=== PATIENT | male | born 1930 | race Caucasian/White ===

== ENCOUNTER → 2016-06-04 | Outpatient (CLI) | payer MEDICARE | LOC: RAD 10:17 | PROVIDERS: ATTEND Urology | DX: C61 Malignant neoplasm of prostate (principal) | CPT/HCPCS: 78306; A9503; Q9969 ==

== ENCOUNTER → 2017-04-02 | Outpatient (CLI) | payer MEDICARE ==
--- NOTE | 2017-04-02 15:26 | RADIOLOGY REPORT (SQ) ---
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 NUMBER OF VIEWS: Three views. TECHNIQUE: AP, lateral, and oblique radiographic images acquired of the left ankle. LIMITATIONS: Faintly radiopaque dressing over the ankle FINDINGS: MINERALIZATION: Osteoporotic BONES: No acute fracture or dislocation. No aggressive bony demineralization or periosteal new bone over the medial malleolus worrisome for osteomyelitis at this time. JOINTS: No effusions. SOFT TISSUES: Mild diffuse medial soft tissue swelling. No foreign body. OTHER: No other significant finding. IMPRESSION: No bony demineralization or periostitis medial malleolus worrisome for osteomyelitis at this time TECHNICAL DOCUMENTATION: JOB ID: [id number] [email or web address]- All Rights Reserved
== END ==
LOC: OD 14:12
PROVIDERS: ATTEND Preventive Medicine Undersea and Hyperbaric Medicine
DX: L97.322 Non-pressure chronic ulcer of left ankle with fat layer exposed (principal)

== ENCOUNTER 2017-05-06 13:57 | Emergency (ER) | payer MEDICARE ==
[2017-05-06] MEDS ORDERED: NORMAL SALINE 1000 ML 1,000 ML IV ONE (14:23)
--- NOTE | 2017-05-06 14:25 | ER Document Report ---
ED Medical Screen (RME) - General Chief Complaint: Syncope Stated Complaint: POSSIBLE SYNCOPE Time Seen by Provider: 05/06/17 14:22 Notes: pt with hx prostate cancer on chemo had syncopal episode at home today and fell out of chair and landed on floor TRAVEL OUTSIDE OF THE [place] IN LAST 30 DAYS: No - Related Data Allergies/Adverse Reactions: adhesive [Adhesive] Allergy (Verified 01/21/12 01:07) alfuzosin HCl [From Uroxatral] Allergy (Verified 01/21/12 01:07) atorvastatin calcium [From Lipitor] Allergy (Verified 01/21/12 01:07) bacitracin [From Neosporin] Allergy (Verified 01/21/12 01:07) bacitracin zinc [From Neosporin] Allergy (Verified 01/21/12 01:07) gramicidin D [From Neosporin] Allergy (Verified 01/21/12 01:07) neomycin [Neomycin] Allergy (Verified 01/21/12 01:07) neomycin sulfate [From Neosporin] Allergy (Verified 01/21/12 01:07) nystatin [Nystatin] Allergy (Verified 01/21/12 01:07) polymyxin B [From Neosporin] Allergy (Verified 01/21/12 01:07) polymyxin B sulfate [From Neosporin] Allergy (Verified 01/21/12 01:07) simvastatin [From Zocor] Allergy (Verified 01/21/12 01:07) alfluzosin Allergy (Uncoded 01/21/12 01:07) polymycin Allergy (Uncoded 01/21/12 01:07) rubber gloves Allergy (Uncoded 01/21/12 01:07) Past Medical History - Past Medical History Cardiac Medical History: Reports: Hx Coronary Artery Disease, Hx Heart Attack Denies: Hx Hypertension Pulmonary Medical History: Denies: Hx Asthma, Hx Bronchitis, Hx COPD, Hx Pneumonia, Hx Tuberculosis Neurological Medical History: Reports: 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 Denies: Hx Pacemaker - Immunizations Hx Diphtheria, Pertussis, Tetanus Vaccination: Yes - 11/08/11 Physical Exam - Vital signs Vitals: Temp Pulse Resp BP Pulse Ox 97.9 F 74 18 127/65 H 98 05/06/17 14:15 05/06/17 14:15 05/06/17 14:15 05/06/17 14:15 05/06/17 14:15 Course - Vital Signs Vital signs: Temp Pulse Resp BP Pulse Ox 97.9 F 74 18 127/65 H 98 05/06/17 14:15 05/06/17 14:15 05/06/17 14:15 05/06/17 14:15 05/06/17 14:15
[2017-05-06 14:38] LABS: ABSOLUTE EOSINOPHILS # (AUTO) 0.1 10^3/uL (0.0-0.6); ABSOLUTE LYMPHOCYTES (AUTO) 1.4 10^3/uL (0.5-4.7); ABSOLUTE MONOCYTES (AUTO) 1.3 10^3/uL (0.1-1.4); ABSOLUTE NEUT (AUTO) 9.5 10^3/uL (1.7-8.2); BASOPHILS % (AUTO) 0.3 % (0-2); EOSINOPHILS % (AUTO) 0.5 % (0-6); HEMATOCRIT 37.6 % (37.9-51.0); HEMOGLOBIN 12.5 g/dL (13.5-17.0); LYMPHOCYTES % (AUTO) 11.6 % (13-45); MEAN CORPUSCULAR HEMOGLOBIN 30.6 pg (27.0-33.4); MEAN CORPUSCULAR HGB CONC 33.3 g/dL (32.0-36.0); MEAN CORPUSCULAR VOLUME 92 fl (80-97); MONOCYTES % (AUTO) 10.3 % (3-13); PLATELET COUNT 240 10^3/uL (150-450); RED BLOOD COUNT 4.09 10^6/uL (4.35-5.55); RED CELL DISTRIBUTION WIDTH 14.5 % (11.5-14.0); SEGMENTED NEUTROPHILS % (AUTO) 77.3 % (42-78); TOTAL CELLS COUNTED % (AUTO) 100 %; WHITE BLOOD COUNT 12.3 10^3/uL (4.0-10.5)
[2017-05-06 15:00] LABS: ALANINE AMINOTRANSFERASE 28 U/L (21-72); ALBUMIN 3.6 g/dL (3.5-5.0); ALKALINE PHOSPHATASE 59 U/L (38-126); ANION GAP 7 (5-19); ASPARTATE AMINO TRANSFERASE 28 U/L (17-59); BILIRUBIN,DIRECT 0.4 mg/dL (0.0-0.4); BILIRUBIN,TOTAL 0.7 mg/dL (0.2-1.3); BLOOD UREA NITROGEN 20 mg/dL (7-20); CALCIUM 8.9 mg/dL (8.4-10.2); CARBON DIOXIDE 27 mmol/L (22-30); CHLORIDE 102 mmol/L (98-107); GLUCOSE 105 mg/dL (75-110); POTASSIUM 3.9 mmol/L (3.6-5.0); SODIUM 136.1 mmol/L (137-145); TOTAL PROTEIN 6.5 g/dL (6.3-8.2)
[2017-05-06 15:19] LABS: APPEARANCE,URINE SLIGHTLY-CLOUDY; BILIRUBIN,URINE NEGATIVE (NEGATIVE); COLOR,URINE AMBER; GLUCOSE, URINE NEGATIVE (NEGATIVE); KETONES,URINE NEGATIVE (NEGATIVE); LEUKOCYTE ESTERASE,URINE NEGATIVE (NEGATIVE); NITRITE,URINE NEGATIVE (NEGATIVE); PROTEIN,URINE NEGATIVE (NEGATIVE); URINE SPECIFIC GRAVITY 1.017
--- NOTE | 2017-05-06 15:50 | RADIOLOGY REPORT (SQ) ---
EXAM DESCRIPTION: WRIST RIGHT 3 VIEWS COMPLETED DATE/TIME: 05/06/2017 3:38 pm REASON FOR STUDY: pain/fall COMPARISON: None. NUMBER OF VIEWS: Three views. TECHNIQUE: AP, lateral, and oblique radiographic images acquired of the right wrist. LIMITATIONS: None. FINDINGS: MINERALIZATION: Normal. BONES: No acute fracture or dislocation. No worrisome bone lesions. Normal alignment. SOFT TISSUES: No soft tissue swelling. No foreign body. OTHER: No other significant finding. IMPRESSION: NEGATIVE STUDY OF THE RIGHT WRIST. NO RADIOGRAPHIC EVIDENCE OF ACUTE INJURY. TECHNICAL DOCUMENTATION: JOB ID: [id number] [employer]- All Rights Reserved Reading location - IP/workstation name: [email or web address]
--- NOTE | 2017-05-06 15:51 | RADIOLOGY REPORT (SQ) ---
EXAM DESCRIPTION: SHOULDER LEFT 2 OR MORE VIEWS COMPLETED DATE/TIME: 05/06/2017 3:38 pm REASON FOR STUDY: pain/fall COMPARISON: Plain films of the chest dated 12/13/2014. NUMBER OF VIEWS: Three views. TECHNIQUE: Internal rotation, external rotation, and Y view images acquired of the left shoulder. LIMITATIONS: None. FINDINGS: MINERALIZATION: Normal. BONES: Multiple osseous sclerotic lesions involving the ribs, clavicle, scapula and the humerus like ly consistent with the patient's known history of osseous metastatic disease. No acute fracture or d islocation. JOINTS: No dislocation. VISUALIZED LUNGS AND RIBS: No pneumothorax. No rib fracture. SOFT TISSUES: No radiopaque foreign body. OTHER: No other significant finding. IMPRESSION: 1 No acute osseous findings. 2 Multiple osseous sclerotic lesions within the ribs, scapula, clavicle and humerus likely consistent with the patient's known history of metastatic disease. TECHNICAL DOCUMENTATION: JOB ID: [id number] [employer] All Rights Reserved Reading location - IP/workstation name: [email or web address]
--- NOTE | 2017-05-06 17:10 | ER Document Report ---
ED Syncope and Near Syncope - General Mode of Arrival: Medic Information source: Patient, Relative TRAVEL OUTSIDE OF THE [place]. IN LAST 30 DAYS: No <KALEIGH GARNETT - Last Filed: 05/06/17 21:11> <DANISH GONSALEZ - Last Filed: 05/06/17 21:26> - General Chief Complaint: Syncope Stated Complaint: POSSIBLE SYNCOPE Time Seen by Provider: 05/06/17 14:22 Notes: Patient is an 86-year-old male with a history of metastatic prostate cancer presents to the emergency department due to a syncopal episode. Patient states that he sat in his chair to put on his shoes when he began to "lose control of his body". Patient states decided to stand up then proceeded to have a syncopal episode. states that she heard the patient fall and found him laying on their pet gate. states when the patient woke up he was diaphoretic, alert and oriented but did not remember passing out. Patient denies any cough, nausea or chest pain. Patient is complaining of wrist and shoulder pain. Patient is currently on chemo and is taking to Zytiga 1000 mg and Prednisone. states the patient was going to wound care today to have a boot removed from his left foot due to an ulcer. (KALEIGH GARNETT) - Related Data Allergies/Adverse Reactions: adhesive [Adhesive] Allergy (Verified 01/21/12 01:07) alfuzosin HCl [From Uroxatral] Allergy (Verified 01/21/12 01:07) atorvastatin calcium [From Lipitor] Allergy (Verified 01/21/12 01:07) bacitracin [From Neosporin] Allergy (Verified 01/21/12 01:07) bacitracin zinc [From Neosporin] Allergy (Verified 01/21/12 01:07) gramicidin D [From Neosporin] Allergy (Verified 01/21/12 01:07) neomycin [Neomycin] Allergy (Verified 01/21/12 01:07) neomycin sulfate [From Neosporin] Allergy (Verified 01/21/12 01:07) nystatin [Nystatin] Allergy (Verified 01/21/12 01:07) polymyxin B [From Neosporin] Allergy (Verified 01/21/12 01:07) polymyxin B sulfate [From Neosporin] Allergy (Verified 01/21/12 01:07) simvastatin [From Zocor] Allergy (Verified 01/21/12 01:07) alfluzosin Allergy (Uncoded 01/21/12 01:07) polymycin Allergy (Uncoded 01/21/12 01:07) rubber gloves Allergy (Uncoded 01/21/12 01:07) Past Medical History - General Information source: Patient - Social History Smoking Status: Unknown if Ever Smoked Family History: Reviewed & Not Pertinent - Past Medical History Cardiac Medical History: Reports: Hx Coronary Artery Disease, Hx Heart Attack Neurological Medical History: Reports: 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 Endocrine Medical History: Reports: Hx Hypothyroidism Malignancy Medical History: Reports Hx Prostate Cancer - mets to the bones, 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 Past Surgical History: Reports: Hx Appendectomy, Hx Orthopedic Surgery - Ulna nerve reroute R arm - Immunizations Hx Diphtheria, Pertussis, Tetanus Vaccination: Yes - 11/08/11 Hx Pneumococcal Vaccination: 11/07/11 <KALEIGH GARNETT - Last Filed: 05/06/17 21:11> Review of Systems - Review of Systems Constitutional: No symptoms reported EENT: No symptoms reported Cardiovascular: No symptoms reported Respiratory: No symptoms reported Gastrointestinal: No symptoms reported Genitourinary: No symptoms reported Male Genitourinary: No symptoms reported Musculoskeletal: See HPI Skin: No symptoms reported Hematologic/Lymphatic: No symptoms reported Neurological/Psychological: See HPI, Lost consciousness <KALEIGH GARNETT - Last Filed: 05/06/17 21:11> Physical Exam <AKLEIGH GARNETT - Last Filed: 05/06/17 21:11> <DANISH GONSALEZ - Last Filed: 05/06/17 21:26> - Vital signs Vitals: Temp Pulse Resp BP Pulse Ox 97.9 F 74 18 127/65 H 98 05/06/17 14:15 05/06/17 14:15 05/06/17 14:15 05/06/17 14:15 05/06/17 14:15 - Notes Notes: GENERAL: Alert, interacts well. No acute distress. HEAD: Normocephalic, atraumatic. EYES: Pupils equal, round, and reactive to light. Extraocular movements intact. ENT: Oral mucosa moist, tongue midline. NECK: Full range of motion. Supple. Trachea midline. LUNGS: Clear to auscultation bilaterally, no wheezes, rales, or rhonchi. No respiratory distress. HEART: Regular rate and rhythm. No murmurs, gallops, or rubs. ABDOMEN: Soft, non-tender. Non-distended. Bowel sounds present in all 4 quadrants. EXTREMITIES: Moves all 4 extremities spontaneously. Left foot wrapped from ulcer. NEUROLOGICAL: Alert and oriented x3. Normal speech. PSYCH: Normal affect, normal mood. SKIN: Warm, dry, normal turgor. No rashes or lesions noted. BACK: tender to palpation over L3 and L4, worse on the right. (KALEIGH GARNETT) Course - Laboratory Result Diagrams: 05/06/17 13:15 05/06/17 13:15 <KALEIGH GARNETT - Last Filed: 05/06/17 21:11> - Laboratory Result Diagrams: 05/06/17 13:15 05/06/17 13:15 - Diagnostic Test Radiology reviewed: Reports reviewed - EKG Interpretation by Me EKG shows normal: Sinus rhythm <DANISH GONSALEZ - Last Filed: 05/06/17 21:26> - Re-evaluation Re-evalutation: Patient is an 86-year-old male who comes in after an episode of syncope at home. He is apparently putting his shoes on at the time. Patient denies chest pain, trouble breathing, or nausea. states that the patient is on chemotherapy and they have been told that it could cause syncope. The patient is feeling well now after fluids. Offered admission, but the patient would prefer to go home where he would be more comfortable given his metastatic prostate cancer with bone metastasis. is comfortable with this plan. They will return immediately if he has any further concerns or symptoms. Denies any pain anywhere right now. Feels well and would like to leave. (DANISH GONSALEZ) - Vital Signs Vital signs: Temp Pulse Resp BP Pulse Ox 98.5 F 80 20 125/87 H 100 05/06/17 17:17 05/06/17 17:17 05/06/17 17:17 05/06/17 17:17 05/06/17 17:17 - Laboratory Laboratory results interpreted by me: 05/06/17 05/06/17 05/06/17 13:15 13:15 14:54 WBC 12.3 H RBC 4.09 L Hgb 12.5 L Hct 37.6 L RDW 14.5 H Lymphocytes % 11.6 L Absolute Neutrophils 9.5 H Sodium 136.1 L Urine Urobilinogen 2.0 H Urine Ascorbic Acid 40 H Discharge <KALEIGH GARNETT - Last Filed: 05/06/17 21:11> <DANISH GONSALEZ - Last Filed: 05/06/17 21:26> - Discharge Clinical Impression: Syncope Qualifiers: Syncope type: unspecified Qualified Code(s): R55 - Syncope and collapse Condition: Stable Disposition: HOME, SELF-CARE Instructions: Syncopal Episode ([facility]) Additional Instructions: Please return immediately if you have any further concerns. Referrals: JENNY VILLAGOMEZ MD [Primary Care Provider] - Follow up in 3-5 days Scribe Attestation: 05/06/17 21:25 I personally performed the services described in the documentation, reviewed and edited the documentation which was dictated to the scribe in my presence, and it accurately records my words and actions. (DANISH GONSALEZ) Scribe Documentation - Scribe Written by Lalo:: Lalo Romano, 05/06/2017 17:33 acting as scribe for :: Abril <KALEIGH GARNETT - Last Filed: 05/06/17 21:11>
[2017-05-06 17:19] VITALS: BP 125/87
--- NOTE | 2017-05-06 19:03 | EKG REPORT ---
SEVERITY:- ABNORMAL ECG - SINUS RHYTHM RBBB AND LAFB : Confirmed by: Bahman Smith MD 06-May-2017 19:01:31
== END 2017-05-06 17:59 | disposition home or self-care (01) ==
LOC: ER 13:57
DX: R55 Syncope and collapse (principal); M25.539 Pain in unspecified wrist; M25.519 Pain in unspecified shoulder; W19.XXXA Unspecified fall, initial encounter; Y93.89 Activity, other specified; C61 Malignant neoplasm of prostate; C79.51 Secondary malignant neoplasm of bone; Z79.899 Other long term (current) drug therapy; Z79.52 Long term (current) use of systemic steroids; L97.529 Non-pressure chronic ulcer of other part of left foot with unspecified severity; I25.10 Atherosclerotic heart disease of native coronary artery without angina pectoris; I25.2 Old myocardial infarction; Z91.048 Other nonmedicinal substance allergy status; Z88.8 Allergy status to other drugs, medicaments and biological substances; Z88.3 Allergy status to other anti-infective agents; Z88.1 Allergy status to other antibiotic agents
CPT/HCPCS: 93005; 99284; 96360; 36415; 83735; 85025; 80053; 81001; 84484; 73030; 73110; 93010; J7030

== ENCOUNTER 2017-05-27 15:23 | Emergency (ER) | payer MEDICARE ==
[2017-05-27 15:40] LABS: ABSOLUTE LYMPHOCYTES (AUTO) 1.3 10^3/uL (0.5-4.7); ABSOLUTE MONOCYTES (AUTO) 0.8 10^3/uL (0.1-1.4); BASOPHILS % (AUTO) 0.2 % (0-2); EOSINOPHILS % (AUTO) 0.2 % (0-6); HEMATOCRIT 37.4 % (37.9-51.0); HEMOGLOBIN 12.8 g/dL (13.5-17.0); LYMPHOCYTES % (AUTO) 14.3 % (13-45); MEAN CORPUSCULAR HEMOGLOBIN 31.1 pg (27.0-33.4); MEAN CORPUSCULAR HGB CONC 34.2 g/dL (32.0-36.0); MEAN CORPUSCULAR VOLUME 91 fl (80-97); PLATELET COUNT 234 10^3/uL (150-450); RED BLOOD COUNT 4.11 10^6/uL (4.35-5.55); RED CELL DISTRIBUTION WIDTH 14.7 % (11.5-14.0); SEGMENTED NEUTROPHILS % (AUTO) 76.3 % (42-78); TOTAL CELLS COUNTED % (AUTO) 100 %; WHITE BLOOD COUNT 9.2 10^3/uL (4.0-10.5)
[2017-05-27 15:55] LABS: ALANINE AMINOTRANSFERASE 24 U/L (21-72); ALBUMIN 3.9 g/dL (3.5-5.0); ALKALINE PHOSPHATASE 74 U/L (38-126); ANION GAP 14 (5-19); ASPARTATE AMINO TRANSFERASE 25 U/L (17-59); BILIRUBIN,DIRECT 0.3 mg/dL (0.0-0.4); BILIRUBIN,TOTAL 0.8 mg/dL (0.2-1.3); BLOOD UREA NITROGEN 21 mg/dL (7-20); CALCIUM 9.6 mg/dL (8.4-10.2); CARBON DIOXIDE 19 mmol/L (22-30); CHLORIDE 100 mmol/L (98-107); CREATINE KINASE 66 U/L (55-170); GLUCOSE 108 mg/dL (75-110); POTASSIUM 4.4 mmol/L (3.6-5.0); SODIUM 132.5 mmol/L (137-145); TOTAL PROTEIN 6.8 g/dL (6.3-8.2)
[2017-05-27 16:06] LABS: CREATINE KINASE MB 1.99 ng/mL (<4.55); TROPONIN I 0.013 ng/mL
[2017-05-27] MEDS ORDERED: NORMAL SALINE 500 ML IV ONE (16:14)
--- NOTE | 2017-05-27 16:35 | RADIOLOGY REPORT (SQ) ---
EXAM DESCRIPTION: CHEST SINGLE VIEW COMPLETED DATE/TIME: 05/27/2017 4:07 pm REASON FOR STUDY: near syncope COMPARISON: 12/13/2014 EXAM PARAMETERS: NUMBER OF VIEWS: One view. TECHNIQUE: Single frontal radiographic view of the chest acquired. RADIATION DOSE: NA LIMITATIONS: None. FINDINGS: LUNGS AND PLEURA: Stable pleural based plaques or calcified nodules in the lungs since th e prior examination. No acute pulmonary consolidation. No pneumothorax or pleural effusion. MEDIASTINUM AND HILAR STRUCTURES: No masses. Contour normal. HEART AND VASCULAR STRUCTURES: Stable and appearance. BONES: No acute findings. The osseous lesions are stable in appearance with small calcified lesions in the clavicles, bony glenoids and the humeri. HARDWARE: None in the chest. OTHER: No other significant finding. IMPRESSION: 1 Stable appearance to the chest since the prior study dated 12/13/2014. There either s table calcified nodules in the lungs versus pleural based plaques. Correlation with any prior CT uche st examination suggested. 2 The osseous lesions are stable in appearance. 3 No acute pulmonary consolidation. TECHNICAL DOCUMENTATION: JOB ID: [id number] [employer]- All Rights Reserved Reading location - IP/workstation name: [email or web address]
[2017-05-27 17:50] LABS: APPEARANCE,URINE CLEAR; BILIRUBIN,URINE NEGATIVE (NEGATIVE); COLOR,URINE YELLOW; GLUCOSE, URINE NEGATIVE (NEGATIVE); KETONES,URINE TRACE mg/dL (NEGATIVE); LEUKOCYTE ESTERASE,URINE NEGATIVE (NEGATIVE); NITRITE,URINE NEGATIVE (NEGATIVE); PROTEIN,URINE NEGATIVE (NEGATIVE); URINE SPECIFIC GRAVITY 1.013; UROBILINOGEN,URINE NEGATIVE mg/dL (<2.0)
--- NOTE | 2017-05-27 18:50 | ER Document Report ---
ED General - General Chief Complaint: General Weakness Stated Complaint: WEAKNESS Time Seen by Provider: 05/27/17 15:39 Mode of Arrival: Medic Information source: Patient Notes: This is an 87-year-old man with a 3 of metastatic prostate cancer (on Zytiga and prednisone (who presents to the emergency room with generalized weakness. Patient states that he was putting air in attire for a wheelbarrow and he thinks he over exerted himself. He has been having significant weakness from being on the anticancer medicine. He denies any chest pain, shortness of breath , abdominal pain. He denies any fever or chills. TRAVEL OUTSIDE OF THE [place] IN LAST 30 DAYS: No - HPI Onset: Last week Onset/Duration: Gradual Quality of pain: No pain Severity: None Pain Level: Denies Associated symptoms: denies: Chest pain, Fever, Shortness of breath Exacerbated by: Denies Relieved by: Denies Similar symptoms previously: Yes Recently seen / treated by doctor: Yes - Related Data Allergies/Adverse Reactions: adhesive [Adhesive] Allergy (Verified 01/21/12 01:07) alfuzosin HCl [From Uroxatral] Allergy (Verified 01/21/12 01:07) atorvastatin calcium [From Lipitor] Allergy (Verified 01/21/12 01:07) bacitracin [From Neosporin] Allergy (Verified 01/21/12 01:07) bacitracin zinc [From Neosporin] Allergy (Verified 01/21/12 01:07) gramicidin D [From Neosporin] Allergy (Verified 01/21/12 01:07) neomycin [Neomycin] Allergy (Verified 01/21/12 01:07) neomycin sulfate [From Neosporin] Allergy (Verified 01/21/12 01:07) nystatin [Nystatin] Allergy (Verified 01/21/12 01:07) polymyxin B [From Neosporin] Allergy (Verified 01/21/12 01:07) polymyxin B sulfate [From Neosporin] Allergy (Verified 01/21/12 01:07) simvastatin [From Zocor] Allergy (Verified 01/21/12 01:07) alfluzosin Allergy (Uncoded 01/21/12 01:07) polymycin Allergy (Uncoded 01/21/12 01:07) rubber gloves Allergy (Uncoded 01/21/12 01:07) Past Medical History - General Information source: Patient - Social History Smoking Status: Former Smoker Cigarette use (# per day): No Chew tobacco use (# tins/day): No Frequency of alcohol use: None Drug Abuse: None Lives with: Spouse/Significant other Family History: Reviewed & Not Pertinent Patient has suicidal ideation: No Patient has homicidal ideation: No - Past Medical History Cardiac Medical History: Reports: Hx Coronary Artery Disease, Hx Heart Attack - NSTEMI Denies: Hx Hypertension Pulmonary Medical History: Denies: Hx Asthma, Hx Bronchitis, Hx COPD, Hx Pneumonia, Hx Tuberculosis Neurological Medical History: 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 Denies: Hx Pacemaker - Immunizations Hx Diphtheria, Pertussis, Tetanus Vaccination: Yes - 11/08/11 Hx Pneumococcal Vaccination: 11/07/11 Review of Systems - Review of Systems Constitutional: denies: Chills, Fever EENT: No symptoms reported Cardiovascular: No symptoms reported Respiratory: No symptoms reported Gastrointestinal: No symptoms reported Genitourinary: No symptoms reported Male Genitourinary: No symptoms reported Musculoskeletal: No symptoms reported Skin: No symptoms reported Hematologic/Lymphatic: No symptoms reported Neurological/Psychological: Weakness Physical Exam - Vital signs Vitals: Temp Pulse Resp BP Pulse Ox 97.9 F 82 19 124/67 99 05/27/17 15:36 05/27/17 15:36 05/27/17 15:36 05/27/17 15:36 05/27/17 15:36 Notes: Physical exam: GENERAL: The 87-year-old man, alert and oriented 3, no acute distress, appears weak HEAD: Atraumatic, normocephalic. EYES: Pupils equal round and reactive to light, extraocular movements intact, sclera anicteric, conjunctiva are normal. ENT: TMs normal, nares patent, oropharynx clear without exudates. Dry mucous membranes. NECK: Normal range of motion, supple without obvious mass or JVD. LUNGS: Breath sounds clear to auscultation bilaterally and equal. No wheezes rales or rhonchi. HEART: Regular rate and rhythm without murmurs, rubs or gallops. ABDOMEN: Soft, normoactive bowel sounds. No tenderness to palpation. No guarding, no rebound. No masses appreciated. EXTREMITIES: Normal range of motion, no pitting or edema. No clubbing or cyanosis. NEUROLOGICAL: Cranial nerves II through XII grossly intact. Normal speech, moving all extremities. PSYCH: Normal mood, normal affect. SKIN: Warm, Dry, normal turgor, no rashes or lesions noted. Course - Re-evaluation Re-evalutation: 05/27/17 22:29 Patient states he was feeling better after IV fluids. I advised him to hold his cancer medicine for the next 2 days but to continue his steroids. He will follow-up with his oncologist next week. He will be going home with his . I have had an extensive conversation with both of them at the bedside. - Vital Signs Vital signs: Temp Pulse Resp BP Pulse Ox 98.4 F 88 16 115/69 96 05/27/17 19:15 05/27/17 19:15 05/27/17 19:15 05/27/17 19:15 05/27/17 19:15 - Laboratory Result Diagrams: 05/27/17 14:49 05/27/17 14:49 Laboratory results interpreted by me: 05/27/17 05/27/17 05/27/17 14:49 14:49 17:27 RBC 4.11 L Hgb 12.8 L Hct 37.4 L RDW 14.7 H Sodium 132.5 L Carbon Dioxide 19 L BUN 21 H Urine Ketones TRACE H Urine Ascorbic Acid 40 H - Diagnostic Test Radiology reviewed: Image reviewed, Reports reviewed - The chest x-ray was relatively stable compared to previous - EKG Interpretation by Me Rate: Normal Rhythm: NSR - EKG shows normal sinus rhythm with a ventricular rate of 72, left anterior hemiblock, no acute ST-T wave changes. No significant change from old EKG on May 06 of this year. Discharge - Discharge Clinical Impression: Generalized weakness Condition: Stable Disposition: HOME, SELF-CARE Additional Instructions: As we discussed, I would hold the Zytiga for 2 days. Continue with the prednisone as previously prescribed. Drink plenty of fluids, rest, ambulate as tolerated. Follow-up with Dr. Camara as planned next week. Copy of today's labs as well as May 06 with you when you go. Into the emergency room for worsening weakness, any concerns that you are getting worse, feeling like you can affect. Referrals: JENNY VILLAGOMEZ MD [Primary Care Provider] - Follow up as needed
[2017-05-27 19:19] VITALS: BP 115/69
--- NOTE | 2017-05-27 19:23 | EKG REPORT ---
SEVERITY:- ABNORMAL ECG - SINUS RHYTHM RBBB AND LAFB : Confirmed by: Fercho Aly 27-May-2017 19:21:51
== END 2017-05-27 19:15 | disposition home or self-care (01) ==
LOC: ER 15:23
DX: R53.1 Weakness (principal); T38.7X5A Adverse effect of androgens and anabolic congeners, initial encounter; C61 Malignant neoplasm of prostate; C79.51 Secondary malignant neoplasm of bone; I25.10 Atherosclerotic heart disease of native coronary artery without angina pectoris; I10 Essential (primary) hypertension; I25.2 Old myocardial infarction; Z79.52 Long term (current) use of systemic steroids; Z88.8 Allergy status to other drugs, medicaments and biological substances; Z91.048 Other nonmedicinal substance allergy status; Z88.3 Allergy status to other anti-infective agents
CPT/HCPCS: 93005; 99285; 96360; 36415; 82553; 82550; 83735; 85025; 80053; 81001; 84484; 71045; 93010; J7040

== ENCOUNTER → 2017-07-04 | Outpatient (CLI) | payer MEDICARE ==
--- NOTE | 2017-07-04 14:43 | RADIOLOGY REPORT (SQ) ---
EXAM DESCRIPTION: CT HEAD WITHOUT COMPLETED DATE/TIME: 07/04/2017 1:21 pm REASON FOR STUDY: SYNCOPE AND COLLAPSE R55 SYNCOPE AND COLLAPSE COMPARISON: None. TECHNIQUE: Axial images acquired through the brain without intravenous contrast. Images reviewed wi th bone, brain and subdural windows. Additional sagittal and coronal reconstructions were generated. Images stored on PACS. All CT scanners at this facility use dose modulation, iterative reconstruction, and/or weight based d osing when appropriate to reduce radiation dose to as low as reasonably achievable (ALARA). [facility]: Dose Right [facility]: CareDose [facility]: Dose Right [facility]: Teradose 4D [facility]: POSLavu RADIATION DOSE: CT Rad equipment meets quality standard of care and radiation dose reduction techniq ues were employed. CTDIvol: 48.6 mGy. DLP: 952 mGy-cm.mGy. LIMITATIONS: None. FINDINGS: VENTRICLES: Prominent. CEREBRUM: No masses. No hemorrhage. No midline shift. Areas of low density in the white matter mos t likely due to chronic micro-vascular ischemic change. No evidence for acute infarction. CEREBELLUM: No masses. No hemorrhage. No alteration of density. No evidence for acute infarction. EXTRAAXIAL SPACES: Age-related involutional change. No fluid collections. No masses. ORBITS AND GLOBE: No intra- or extraconal masses. Normal contour of globe without masses. CALVARIUM: No fracture. PARANASAL SINUSES: Polyp or retention cyst left maxillary sinus. SOFT TISSUES: No mass or hematoma. OTHER: No other significant finding. IMPRESSION: CHRONIC CHANGES OF ATROPHY AND MICROVASCULAR ISCHEMIA. NO ACUTE PROCESS. EVIDENCE OF ACUTE STROKE: NO. TECHNICAL DOCUMENTATION: JOB ID: [id number] Quality ID # [id number]: Final reports with documentation of one or more dose reduction techniques (e.g., Au tomated exposure control, adjustment of the mA and/or kV according to patient size, use of iterative reconstruction technique) 2010 [employer]- All Rights Reserved Reading location - IP/workstation name: [email or web address]
--- NOTE | 2017-07-04 15:17 | RADIOLOGY REPORT (SQ) ---
EXAM DESCRIPTION: CAROTID DOPPLER COMPLETED DATE/TIME: 07/04/2017 3:06 pm REASON FOR STUDY: SYNCOPE R55 SYNCOPE AND COLLAPSE COMPARISON: None. TECHNIQUE: Grayscale ultrasound, Doppler velocity and spectra, and color Doppler images acquired of the extra-cranial carotid and vertebral arteries. Images stored on PACS. LIMITATIONS: None. FINDINGS: RIGHT CAROTID CCA Velocities: Within normal limits. ICA Velocities Peak systolic 0.73 m/s. End diastolic 0.12 m/s. Proximal ICA/CCA peak systolic ratio 1.1. Spectra normal. No significant plaque. LEFT CAROTID CCA Velocities: Within normal limits. ICA Velocities Peak systolic 0.40 m/s. End diastolic 0.12 m/s. Proximal ICA/CCA peak systolic ratio 1.3. Spectra normal. No significant plaque. VERTEBRAL ARTERIES: Antegrade flow. Normal waveforms. SUBCLAVIAN ARTERIES: Not imaged. OTHER: No other significant finding. IMPRESSION: NO HEMODYNAMICALLY SIGNIFICANT STENOSIS. COMMENT: Quality ID #[id number]: Velocity criteria are extrapolated from the diameter data as defined by t he Society of Radiologists in Ultrasound Consensus Conference. Radiology 2003: 229; 340-346. TECHNICAL DOCUMENTATION: JOB ID: [id number]- All Rights Reserved Reading location - IP/workstation name: [email or web address]
== END ==
LOC: RAD 13:04
PROVIDERS: ATTEND Physician Assistant
DX: R55 Syncope and collapse (principal)
CPT/HCPCS: 70450; 93880

== ENCOUNTER 2018-01-31 01:50 | Emergency (ER) | payer MEDICARE ==
[2018-01-31] MEDS ORDERED: MORPHINE SULFATE 10 MG/ML INJ IV ONE (03:03)
[2018-01-31] MEDS ORDERED: NORMAL SALINE 1000 ML 1,000 ML IV ONE (03:04)
[2018-01-31 03:52] LABS: ABSOLUTE MONOCYTES (AUTO) 0.8 10^3/uL (0.1-1.4); ABSOLUTE NEUT (AUTO) 5.8 10^3/uL (1.7-8.2); BASOPHILS % (AUTO) 0.2 % (0-2); EOSINOPHILS % (AUTO) 0.1 % (0-6); HEMATOCRIT 33.7 % (37.9-51.0); HEMOGLOBIN 11.8 g/dL (13.5-17.0); LYMPHOCYTES % (AUTO) 12.7 % (13-45); MEAN CORPUSCULAR HEMOGLOBIN 32.1 pg (27.0-33.4); MEAN CORPUSCULAR HGB CONC 35.1 g/dL (32.0-36.0); MEAN CORPUSCULAR VOLUME 92 fl (80-97); MONOCYTES % (AUTO) 10.3 % (3-13); PLATELET COUNT 217 10^3/uL (150-450); RED BLOOD COUNT 3.68 10^6/uL (4.35-5.55); SEGMENTED NEUTROPHILS % (AUTO) 76.7 % (42-78); TOTAL CELLS COUNTED % (AUTO) 100 %; WHITE BLOOD COUNT 7.6 10^3/uL (4.0-10.5)
[2018-01-31 04:06] LABS: ALANINE AMINOTRANSFERASE 18 U/L (21-72); ALBUMIN 3.5 g/dL (3.5-5.0); ALKALINE PHOSPHATASE 107 U/L (38-126); ANION GAP 11 (5-19); ASPARTATE AMINO TRANSFERASE 23 U/L (17-59); BILIRUBIN,DIRECT 0.2 mg/dL (0.0-0.4); BILIRUBIN,TOTAL 0.4 mg/dL (0.2-1.3); BLOOD UREA NITROGEN 24 mg/dL (7-20); CALCIUM 8.8 mg/dL (8.4-10.2); CARBON DIOXIDE 26 mmol/L (22-30); CHLORIDE 101 mmol/L (98-107); GLUCOSE 111 mg/dL (75-110); POTASSIUM 4.3 mmol/L (3.6-5.0); SODIUM 138.4 mmol/L (137-145); TOTAL PROTEIN 6.1 g/dL (6.3-8.2)
[2018-01-31 04:30] LABS: APPEARANCE,URINE CLEAR; BILIRUBIN,URINE NEGATIVE (NEGATIVE); COLOR,URINE YELLOW; GLUCOSE, URINE NEGATIVE (NEGATIVE); KETONES,URINE NEGATIVE (NEGATIVE); LEUKOCYTE ESTERASE,URINE NEGATIVE (NEGATIVE); NITRITE,URINE NEGATIVE (NEGATIVE); PROTEIN,URINE NEGATIVE (NEGATIVE); URINE SPECIFIC GRAVITY 1.016; UROBILINOGEN,URINE NEGATIVE mg/dL (<2.0)
--- NOTE | 2018-01-31 04:36 | RADIOLOGY REPORT (SQ) ---
CLINICAL HISTORY: weakness COMPARISON: December 13, 2014. TECHNIQUE: XR CHEST 1 VIEW 01/31/2018 3:02 AM REVIEW NURSE FINDINGS: Cardiac silhouette is normal in size. Lungs are clear without consolidation, atelectasis, mass or edema. There is no pleural effusion. There is no pneumothorax. There are no acute osseous findings. There are multiple scattered the sclerotic lesions within the skeleton. These are slightly progressive. IMPRESSION: Progressive skeletal sclerotic persistent metastatic disease.
--- NOTE | 2018-01-31 04:37 | RADIOLOGY REPORT (SQ) ---
CLINICAL HISTORY: weakness COMPARISON: None. TECHNIQUE: XR FEMUR 2 VIEWS 01/31/2018 3:[address] MAGISTRATE FINDINGS: There is no fracture. Joint spaces are preserved. Soft tissues are unremarkable. There are scattered sclerotic lesions in the pubic arches. IMPRESSION: No definite fracture. Probable sclerotic metastases.
[2018-01-31] MEDS ORDERED: LIDOCAINE 2% URO-JET 5 ML KIT MM ONE (05:18)
--- NOTE | 2018-01-31 06:08 | ER Document Report ---
ED General - General Chief Complaint: Weakness Stated Complaint: WEAKNESS Time Seen by Provider: 01/31/18 02:51 Notes: Patient is a pleasant 87-year-old male who presents with complaint of weakness and right femur pain. 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 says that he does not drink a whole lot because he has to urinate so frequently. He says she says that he cannot sleep because he is constantly getting up and down to urinate because of his large prostate. She says he does eat well. She feels that he is probably dehydrated. Is not any infections or fevers. No chest pain. No shortness of breath. He denies abdominal pain. Does take tramadol for the pain at home. He is followed by Dr. Szymanski with oncology. No other complaints at this time. TRAVEL OUTSIDE OF THE [place] IN LAST 30 DAYS: No - Related Data Allergies/Adverse Reactions: adhesive [Adhesive] Allergy (Verified 01/21/12 01:07) alfuzosin HCl [From Uroxatral] Allergy (Verified 01/21/12 01:07) atorvastatin calcium [From Lipitor] Allergy (Verified 01/21/12 01:07) bacitracin [From Neosporin] Allergy (Verified 01/21/12 01:07) bacitracin zinc [From Neosporin] Allergy (Verified 01/21/12 01:07) gramicidin D [From Neosporin] Allergy (Verified 01/21/12 01:07) neomycin [Neomycin] Allergy (Verified 01/21/12 01:07) neomycin sulfate [From Neosporin] Allergy (Verified 01/21/12 01:07) nystatin [Nystatin] Allergy (Verified 01/21/12 01:07) polymyxin B [From Neosporin] Allergy (Verified 01/21/12 01:07) polymyxin B sulfate [From Neosporin] Allergy (Verified 01/21/12 01:07) simvastatin [From Zocor] Allergy (Verified 01/21/12 01:07) alfluzosin Allergy (Uncoded 01/21/12 01:07) polymycin Allergy (Uncoded 01/21/12 01:07) rubber gloves Allergy (Uncoded 01/21/12 01:07) Past Medical History - Social History Smoking Status: Never Smoker Chew tobacco use (# tins/day): No Frequency of alcohol use: None Drug Abuse: None Family History: Reviewed & Not Pertinent Patient has suicidal ideation: No Patient has homicidal ideation: No - Past Medical History Cardiac Medical History: Reports: Hx Coronary Artery Disease, Hx Heart Attack - NSTEMI Denies: Hx Hypertension Pulmonary Medical History: Denies: Hx Asthma, Hx Bronchitis, Hx COPD, Hx Pneumonia, Hx Tuberculosis Neurological Medical History: 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 Denies: Hx Pacemaker - Immunizations Hx Diphtheria, Pertussis, Tetanus Vaccination: Yes - 11/08/11 Hx Pneumococcal Vaccination: 11/07/11 Review of Systems - Review of Systems Notes: My Normal Review Basic REVIEW OF SYSTEMS: CONSTITUTIONAL : Denies fever, chills, or sweats. Denies recent illness. CARDIOVASCULAR: Denies chest pain. RESPIRATORY: Denies cough, cold, or chest congestion. Denies shortness of breath, difficulty breathing, or wheezing. GASTROINTESTINAL: Denies abdominal pain. Denies nausea, vomiting, or diarrhea. GENITOURINARY: Urinary frequency. MUSCULOSKELETAL: Right thigh pain SKIN: Denies rash or skin lesions. NEUROLOGICAL: Denies altered mental status or loss of consciousness. Denies headache. Denies weakness or paralysis or loss of use of either side. Denies problems with gait or speech. Denies sensory or motor loss. ALL OTHER SYSTEMS REVIEWED AND NEGATIVE. Physical Exam - Vital signs Vitals: Temp Pulse Resp BP Pulse Ox 98.1 F 70 16 173/82 H 98 01/31/18 02:03 01/31/18 02:03 01/31/18 02:03 01/31/18 02:03 01/31/18 02:03 - Notes Notes: General Appearance: Well nourished, alert, has some generalized weakness on exam. Vitals: reviewed, See vital signs table. Head: no swelling or tenderness to the head Eyes: PERRL, EOMI, Conjuctiva clear Mouth: No decreasd moisture Lungs: No wheezing, No rales, No rhonci, No accessory muscle use, good air exchange bilaterally. Heart: Normal rate, Regular rythm, No murmur, no rub Abdomen: Normal BS, soft, No rigidity, No abdominal tenderness, No guarding, no rebound, no abdominal masses, no organomegaly Extremities: good pulses in all extremities, does not have significant pain to palpation of the thigh. No pain with range of motion of the right knee or hip. Remainder of extremities are nontender as well. Skin: warm, dry, appropriate color, no rash Neuro: speech clear, oriented x 3, normal affect, responds appropriately to questions. She usually uses a walker. He is able to stand with my assistance pretending to be his walker to push down on my arms to help push him up. He is very weak upon standing. He does not have any focal neurologic deficits on exam. Cranial nerves II through XII are intact. Course - Re-evaluation Re-evalutation: 01/31/18 06:17 I talked to the patient is at length. I informed them that she will likely need home health if they want to stay home. I did offer to keep him here and have social work speak with him and his will try and arrange for the help at home as they feel that they really do need further help at home. One thing is able get the patient to do was to allow me to Place Mullins catheter. This way the patient does not have to get up and down off the bed to go urinary frequency. This was his 's biggest concern because the says it is getting hard for her to help him up and down off the bed to urinate. Also she says he gets no sleep because he is constantly trying to get up and down to pee all the time. We Did Pl., Mullins catheter. He had approximate 40 mL 's of urine out. He actually feels much better with this being placed and says that this relieve a lot of pressure in his bladder region. I again informed the patient and the that there will need home health for help with multiple things including changing the Mullins. He is followed by Dr. Szymanski. Patient and again did not want stay in the hospital or the ER. I informed her that I would try to contact Dr. Estevez this morning to inform him of what is going on so they can follow-up closely with him and hopefully he can help them arrange for home health. The says that she did not will speak with her social service assistant about arranging home health because she has a "good friends at [facility] to do home health and she prefers to talk to them personally" . Discharge patient home with him and his requested by strongly encouraged him to return to ER anytime for reevaluation or if they need any help whatsoever. I informed him to return to ER immediately if he has worsening pain, bruising, any problems with Mullins catheter, or if he feels that he is becoming dehydrated in any way. and patient agree with plan patient will be discharged home. Dictation of this chart was performed using voice recognition software; therefore, there may be some unintended grammatical errors. - Vital Signs Vital signs: Temp Pulse Resp BP Pulse Ox 98.1 F 75 19 159/88 H 99 01/31/18 02:03 01/31/18 03:42 01/31/18 03:42 01/31/18 03:42 01/31/18 03:42 - Laboratory Result Diagrams: 01/31/18 03:40 01/31/18 03:40 Laboratory results interpreted by me: 01/31/18 01/31/18 01/31/18 02:50 03:40 03:40 RBC 3.68 L Hgb 11.8 L Hct 33.7 L RDW 15.0 H Lymphocytes % 12.7 L BUN 24 H Glucose 111 H ALT 18 L Total Protein 6.1 L Urine Ascorbic Acid 40 H Discharge - Discharge Clinical Impression: Weakness, Urinary retention, Prostate cancer Leg pain Qualifiers: Laterality: right Qualified Code(s): M79.604 - Pain in right leg Condition: Good Disposition: HOME, SELF-CARE Additional Instructions: Please return to the ER immediately if you develop fever, uncontrolled pain, or feel unwell. Please call Dr. Szymanski this morning. You will likely need home health to help with care of the mullins catheter and to help with changing the mullins catheter. Please return to the ER if you have any further concerns. Referrals: JARRET SZYMANSKI MD [NO LOCAL MD] - 01/31/18
[2018-01-31 06:48] VITALS: BP 163/91
== END 2018-01-31 06:49 | disposition home or self-care (01) ==
LOC: ER 01:50
DX: M79.604 Pain in right leg (principal); R53.1 Weakness; R33.9 Retention of urine, unspecified; Z85.46 Personal history of malignant neoplasm of prostate; R35.0 Frequency of micturition; M79.651 Pain in right thigh; I25.10 Atherosclerotic heart disease of native coronary artery without angina pectoris; I25.2 Old myocardial infarction
CPT/HCPCS: 99285; 96361; 51702; 96374; 36415; 83735; 85025; 80053; 81001; 71045; 73552; J2270; J7030; A9270; J3490

== ENCOUNTER 2018-02-02 19:15 | Emergency (ER) | payer MEDICARE ==
[2018-02-02 20:17] LABS: APPEARANCE,URINE CLOUDY; BILIRUBIN,URINE NEGATIVE (NEGATIVE); CALCIUM OXALATE CRYSTALS,URINE FEW /HPF; COLOR,URINE RED; GLUCOSE, URINE NEGATIVE (NEGATIVE); KETONES,URINE NEGATIVE (NEGATIVE); LEUKOCYTE ESTERASE,URINE LARGE (NEGATIVE); NITRITE,URINE NEGATIVE (NEGATIVE); PROTEIN,URINE >=500 mg/dL (NEGATIVE); URINE SPECIFIC GRAVITY 1.014; UROBILINOGEN,URINE NEGATIVE mg/dL (<2.0)
[2018-02-02] MEDS ORDERED: CEPHALEXIN 500 MG CAPSULE PO ONE (20:41)
[2018-02-02] MEDS ORDERED: TRAMADOL HCL 50 MG TABLET PO ONE (21:20)
--- NOTE | 2018-02-02 21:21 | ER Document Report ---
ED General - General Chief Complaint: Blood in Catheter Stated Complaint: URINARY ISSUES Time Seen by Provider: 02/02/18 19:46 Notes: Patient is an 87-year-old male with a past medical history of hypertension, metastatic prostate cancer, actively on chemotherapy, seen 2 days ago for Pena catheter placement and comfort measures who presents today with leaking around the Pena catheter and hematuria. He also reports a sensation of burning and stinging in his penis. Symptoms have been progressively worsening over the last 24 hours. Nothing improves or worsens her symptoms. Denies a history of similar symptoms in the past. Denies any associated fever or constitutional symptoms. Has not followed up with his primary care doctor regarding today's concerns although has had home health care services engaged through his primary care physician since his last visit. TRAVEL OUTSIDE OF THE [place] IN LAST 30 DAYS: No - Related Data Allergies/Adverse Reactions: adhesive [Adhesive] Allergy (Verified 01/21/12 01:07) alfuzosin HCl [From Uroxatral] Allergy (Verified 01/21/12 01:07) atorvastatin calcium [From Lipitor] Allergy (Verified 01/21/12 01:07) bacitracin [From Neosporin] Allergy (Verified 01/21/12 01:07) bacitracin zinc [From Neosporin] Allergy (Verified 01/21/12 01:07) gramicidin D [From Neosporin] Allergy (Verified 01/21/12 01:07) neomycin [Neomycin] Allergy (Verified 01/21/12 01:07) neomycin sulfate [From Neosporin] Allergy (Verified 01/21/12 01:07) nystatin [Nystatin] Allergy (Verified 01/21/12 01:07) polymyxin B [From Neosporin] Allergy (Verified 01/21/12 01:07) polymyxin B sulfate [From Neosporin] Allergy (Verified 01/21/12 01:07) simvastatin [From Zocor] Allergy (Verified 01/21/12 01:07) alfluzosin Allergy (Uncoded 01/21/12 01:07) polymycin Allergy (Uncoded 01/21/12 01:07) rubber gloves Allergy (Uncoded 01/21/12 01:07) Past Medical History - General Information source: Patient, Relative - Social History Smoking Status: Never Smoker Frequency of alcohol use: None Drug Abuse: None Lives with: Spouse/Significant other Family History: Reviewed & Not Pertinent Patient has suicidal ideation: No Patient has homicidal ideation: No - Past Medical History Cardiac Medical History: Reports: Hx Coronary Artery Disease, Hx Heart Attack - NSTEMI Denies: Hx Hypertension Pulmonary Medical History: Denies: Hx Asthma, Hx Bronchitis, Hx COPD, Hx Pneumonia, Hx Tuberculosis Neurological Medical History: 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 Denies: Hx Pacemaker - Immunizations Hx Diphtheria, Pertussis, Tetanus Vaccination: Yes - 11/08/11 Hx Pneumococcal Vaccination: 11/07/11 Review of Systems - Review of Systems Notes: Constitutional: Negative for fever. HENT: Negative for sore throat. Eyes: Negative for visual changes. Cardiovascular: Negative for chest pain. Respiratory: Negative for shortness of breath. Gastrointestinal: Negative for abdominal pain, vomiting or diarrhea. Genitourinary: Positive for dysuria and hematuria Musculoskeletal: Negative for back pain. Skin: Negative for rash. Neurological: Negative for headaches, weakness or numbness. 10 point ROS negative except as marked above and in HPI. Physical Exam - Vital signs Vitals: Temp Pulse Resp BP Pulse Ox 98.6 F 84 22 H 159/85 H 98 02/02/18 19:24 02/02/18 19:24 02/02/18 19:24 02/02/18 19:24 02/02/18 19:24 Interpretation: Hypertensive Notes: PHYSICAL EXAMINATION: GENERAL: Well-appearing, well-nourished and in no acute distress. HEAD: Atraumatic, normocephalic. EYES: Pupils equal round and reactive to light, extraocular movements intact, sclera anicteric, conjunctiva are normal. ENT: nares patent, oropharynx clear without exudates. Moist mucous membranes. NECK: Normal range of motion, supple without lymphadenopathy LUNGS: Breath sounds clear to auscultation bilaterally and equal. No wheezes rales or rhonchi. HEART: Regular rate and rhythm without murmurs ABDOMEN: Soft, nontender, normoactive bowel sounds. No guarding, no rebound. No masses appreciated. : Pena catheter in place, mild urine leak around Pena catheter EXTREMITIES: Normal range of motion, no pitting or edema. No cyanosis. NEUROLOGICAL: No focal neurological deficits. Moves all extremities spontaneously and on command. PSYCH: Normal mood, normal affect. SKIN: Warm, Dry, normal turgor, no rashes or lesions noted. Course - Re-evaluation Re-evalutation: 02/02/18 21:17 Patient presents with hematuria in his catheter as well as leaking around the Pena catheter. He is otherwise well in appearance, vitals within normal limits. Urine culture has been sent. The catheter has been changed out for a more appropriately fitting catheter so it is not leaking. He has been started on cephalexin for treatment of infection. I have advised the patient and his that he is likely terminal with his stage IV metastatic prostatic cancer and should consider hospice referral which the very much so is in agreement with. I have provided him a referral to a local oncologist as it appears that their current oncologist is hesitant to transition him towards hospice care. At this time will discharge with return precautions and follow- up recommendations. Verbal discharge instructions given a the bedside and opportunity for questions given. Medication warnings reviewed. Patient is in agreement with this plan and has verbalized understanding of return precautions and the need for primary care follow-up in the next 24-72 hours. - Vital Signs Vital signs: Temp Pulse Resp BP Pulse Ox 97.9 F 84 21 H 145/79 H 98 02/02/18 23:06 02/02/18 23:06 02/02/18 23:06 02/02/18 23:06 02/02/18 23:06 - Laboratory Laboratory results interpreted by me: 02/02/18 19:59 Urine Protein >=500 H Urine Blood LARGE H Ur Leukocyte Esterase LARGE H Discharge - Discharge Clinical Impression: Catheter-associated urinary tract infection Qualifiers: Indwelling urinary catheter type: indwelling urethral catheter Encounter type: initial encounter Qualified Code(s): T83.511A - Infection and inflammatory reaction due to indwelling urethral catheter, initial encounter Leakage from urinary catheter Qualifiers: Encounter type: initial encounter Qualified Code(s): T83.038A - Leakage of other urinary catheter, initial encounter Condition: Fair Disposition: HOME, SELF-CARE Additional Instructions: Your urine shows findings consistent with a urinary tract infection. Please take all the antibiotics as directed even if your symptoms have improved. You should follow-up with your primary care doctor as well as oncology within the next 1-2 days. Return to emergency room if you develop fever >101F, persistent vomiting, become lethargic, have severe pain in your sides, or any other symptoms that are concerning to you. Prescriptions: Cephalexin Monohydrate [Keflex 500 mg Capsule] 500 mg PO Q6H 7 Days capsule Referrals: JENNY VILLAGOMEZ MD [Primary Care Provider] - Follow up in 3-5 days JN LONG MD [ACTIVE STAFF] - Follow up as needed
[2018-02-02] MEDS ORDERED: LIDOCAINE 2% URO-JET 5 ML KIT MM ONE (21:30)
[2018-02-02 23:07] VITALS: BP 145/79
== END 2018-02-02 23:07 | disposition home or self-care (01) ==
LOC: ER 19:15
DX: T83.511A Infection and inflammatory reaction due to indwelling urethral catheter, initial encounter (principal); T83.038A Leakage of other urinary catheter, initial encounter; X58.XXXA Exposure to other specified factors, initial encounter; I25.10 Atherosclerotic heart disease of native coronary artery without angina pectoris; I25.2 Old myocardial infarction; E03.9 Hypothyroidism, unspecified; Z88.3 Allergy status to other anti-infective agents; Z85.46 Personal history of malignant neoplasm of prostate; Z85.47 Personal history of malignant neoplasm of testis; Z85.830 Personal history of malignant neoplasm of bone
CPT/HCPCS: 99283; 87086; 87088; 81001; 87186; A9270 ×3; J3490

== ENCOUNTER 2018-02-03 01:16 | Inpatient (IN) | payer MEDICARE ==
[2018-02-03] MEDS ORDERED: RINGERS SOLUTION,LACTATED 1,000 ML IV ONE ×2 (01:21→02:52)
[2018-02-03] MEDS ORDERED: CEFTRIAXONE INJ 1000 MG VIAL IV ONE (01:22)
[2018-02-03] MEDS ORDERED: CEFTRIAXONE 1 GM/D5W RTU 1 GM/50 ML RTUPB IV ONE ×2 (01:27→22:49)
[2018-02-03 01:53] LABS: ABSOLUTE BASOPHILS # (AUTO) 0.1 10^3/uL (0.0-0.2); ABSOLUTE EOSINOPHILS # (AUTO) 0.1 10^3/uL (0.0-0.6); ABSOLUTE LYMPHOCYTES (AUTO) 1.7 10^3/uL (0.5-4.7); ABSOLUTE MONOCYTES (AUTO) 1.4 10^3/uL (0.1-1.4); ABSOLUTE NEUT (AUTO) 10.5 10^3/uL (1.7-8.2); BASOPHILS % (AUTO) 0.4 % (0-2); EOSINOPHILS % (AUTO) 0.6 % (0-6); HEMATOCRIT 39.5 % (37.9-51.0); HEMOGLOBIN 13.4 g/dL (13.5-17.0); LYMPHOCYTES % (AUTO) 12.2 % (13-45); MEAN CORPUSCULAR HEMOGLOBIN 31.3 pg (27.0-33.4); MEAN CORPUSCULAR HGB CONC 33.8 g/dL (32.0-36.0); MEAN CORPUSCULAR VOLUME 93 fl (80-97); MONOCYTES % (AUTO) 9.9 % (3-13); PLATELET COUNT 219 10^3/uL (150-450); RED BLOOD COUNT 4.27 10^6/uL (4.35-5.55); RED CELL DISTRIBUTION WIDTH 14.1 % (11.5-14.0); SEGMENTED NEUTROPHILS % (AUTO) 76.9 % (42-78); TOTAL CELLS COUNTED % (AUTO) 100 %; WHITE BLOOD COUNT 13.7 10^3/uL (4.0-10.5)
[2018-02-03 02:09] LABS: ANION GAP 12 (5-19); BLOOD UREA NITROGEN 17 mg/dL (7-20); CARBON DIOXIDE 26 mmol/L (22-30); CHLORIDE 100 mmol/L (98-107); GLUCOSE 121 mg/dL (75-110); POTASSIUM 3.6 mmol/L (3.6-5.0); SODIUM 138.3 mmol/L (137-145)
[2018-02-03] MEDS ORDERED: KETOROLAC TROMETHAMINE INJ/PF 30 MG/1 ML SDV IV ONE (02:51)
--- NOTE | 2018-02-03 02:51 | ER Document Report ---
ED General - General Chief Complaint: Altered Mental Status Stated Complaint: ALTERED MENTAL STATUS Time Seen by Provider: 02/03/18 01:17 Notes: Patient is an 87-year-old male with a past medical history of metastatic prostate cancer who presents after having a syncopal episode shortly after being discharged from the hospital. The patient apparently felt well upon discharge, and the patient actually stopped to get hamburgers on the way home. On the drive home the patient apparently became unresponsive. EMS was contacted and found the patient to be bradycardic and hypotensive as well as somewhat lethargic. does report that it appeared that the patient completely lost consciousness. She does note the patient has done this several times in the past without clear etiology. EMS does report that intermediate in route to the hospital the patient became normotensive, no longer bradycardic and alert and oriented. At the time of my evaluation the patient denies any complaints other than feeling very cold. He denies recalling the events of tonight after being discharged from the hospital. Nothing obvious to triggered his episode and he states that he feels better now without any intervention. TRAVEL OUTSIDE OF THE [place] IN LAST 30 DAYS: No - Related Data Allergies/Adverse Reactions: adhesive [Adhesive] Allergy (Verified 01/21/12 01:07) alfuzosin HCl [From Uroxatral] Allergy (Verified 01/21/12 01:07) atorvastatin calcium [From Lipitor] Allergy (Verified 01/21/12 01:07) bacitracin [From Neosporin] Allergy (Verified 01/21/12 01:07) bacitracin zinc [From Neosporin] Allergy (Verified 01/21/12 01:07) gramicidin D [From Neosporin] Allergy (Verified 01/21/12 01:07) neomycin [Neomycin] Allergy (Verified 01/21/12 01:07) neomycin sulfate [From Neosporin] Allergy (Verified 01/21/12 01:07) nystatin [Nystatin] Allergy (Verified 01/21/12 01:07) polymyxin B [From Neosporin] Allergy (Verified 01/21/12 01:07) polymyxin B sulfate [From Neosporin] Allergy (Verified 01/21/12 01:07) simvastatin [From Zocor] Allergy (Verified 01/21/12 01:07) alfluzosin Allergy (Uncoded 01/21/12 01:07) polymycin Allergy (Uncoded 01/21/12 01:07) rubber gloves Allergy (Uncoded 01/21/12 01:07) Past Medical History - General Information source: Patient - Social History Smoking Status: Never Smoker Frequency of alcohol use: None Drug Abuse: None Lives with: Spouse/Significant other Family History: Reviewed & Not Pertinent Patient has suicidal ideation: No Patient has homicidal ideation: No - Past Medical History Cardiac Medical History: Reports: Hx Coronary Artery Disease, Hx Heart Attack - NSTEMI Denies: Hx Hypertension Pulmonary Medical History: Denies: Hx Asthma, Hx Bronchitis, Hx COPD, Hx Pneumonia, Hx Tuberculosis Neurological Medical History: 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 Denies: Hx Pacemaker - Immunizations Hx Diphtheria, Pertussis, Tetanus Vaccination: Yes - 11/08/11 Hx Pneumococcal Vaccination: 11/07/11 Review of Systems - Review of Systems Notes: Constitutional: Negative for fever. Positive chills HENT: Negative for sore throat. Eyes: Negative for visual changes. Cardiovascular: Negative for chest pain. Positive for syncope Respiratory: Negative for shortness of breath. Gastrointestinal: Negative for abdominal pain, vomiting or diarrhea. Genitourinary: Negative for dysuria. Musculoskeletal: Negative for back pain. Skin: Negative for rash. Neurological: Negative for headaches, weakness or numbness. 10 point ROS negative except as marked above and in HPI. Physical Exam - Vital signs Vitals: Resp 23 H 02/03/18 01:21 Interpretation: Normal Notes: PHYSICAL EXAMINATION: GENERAL: Somewhat pale, shaking HEAD: Atraumatic, normocephalic. EYES: Pupils equal round and reactive to light, extraocular movements intact, sclera anicteric, conjunctiva are normal. ENT: nares patent, oropharynx clear without exudates. Moist mucous membranes. NECK: Normal range of motion, supple without lymphadenopathy LUNGS: Breath sounds clear to auscultation bilaterally and equal. No wheezes rales or rhonchi. HEART: Regular rate and rhythm without murmurs ABDOMEN: Soft, nontender, normoactive bowel sounds. No guarding, no rebound. No masses appreciated. EXTREMITIES: Normal range of motion, no pitting or edema. No cyanosis. NEUROLOGICAL: No focal neurological deficits. Moves all extremities spontaneously and on command. PSYCH: Mildly lethargic SKIN: Warm, Dry, normal turgor, no rashes or lesions noted. Course - Re-evaluation Re-evalutation: 02/03/18 02:57 Patient presents with a syncopal episode after being discharged earlier tonight. At the time of my evaluation the patient is less interactive than earlier but still alert and oriented x4. He does appear to be having some rigors. Physical examination is otherwise unremarkable. Vitals at time of my evaluation are otherwise unremarkable. The patient's laboratories do reveal a mild leukocytosis. Urinalysis from previous does demonstrate findings consistent with possible pyelonephritis. Given the patient did have a syncopal episode, is now beginning to have constitutional symptoms including rigors, is advanced in age with an associated infection I do believe he requires hospitalization. I started him on IV fluids, IV ceftriaxone and will discuss with hospitalist for admission. 02/03/18 03:03 I discussed this case with Dr. Sun who has accepted the patient for admission. - Vital Signs Vital signs: Temp Pulse Resp BP Pulse Ox 97.5 F 13 129/67 H 96 02/03/18 01:56 02/03/18 02:16 02/03/18 02:16 02/03/18 02:16 - Laboratory Result Diagrams: 02/03/18 01:39 02/03/18 01:39 Laboratory results interpreted by me: 02/03/18 02/03/18 01:39 01:39 WBC 13.7 H RBC 4.27 L Hgb 13.4 L RDW 14.1 H Lymphocytes % 12.2 L Absolute Neutrophils 10.5 H Glucose 121 H Discharge - Discharge Clinical Impression: Rigors Catheter-associated urinary tract infection Qualifiers: Indwelling urinary catheter type: indwelling urethral catheter Encounter type: subsequent encounter Qualified Code(s): T83.511D - Infection and inflammatory reaction due to indwelling urethral catheter, subsequent encounter; N39.0 - Urinary tract infection, site not specified; N39.0 - Urinary tract infection, site not specified Syncope Qualifiers: Syncope type: unspecified Qualified Code(s): R55 - Syncope and collapse Condition: Fair Disposition: ADMITTED OBSERVATION Admitting Provider: Hospitalist Unit Admitted: Telemetry Referrals: JENNY VILLAGOMEZ MD [Primary Care Provider] - Follow up as needed
[2018-02-03] MEDS ORDERED: MAG HYDROX/AL HYDROX/SIMETH SUSP 30 ML UDCUP PO PRN (03:04)
[2018-02-03] MEDS ORDERED: IPRATROPIUM/ALBUTEROL 0.5-2.5 MG/3 ML AMPUL NEB PRN (03:04)
[2018-02-03] MEDS ORDERED: ACETAMINOPHEN 325 MG TABLET PO PRN (03:04)
[2018-02-03] MEDS: NORMAL SALINE 1000 ML 1,000 ML IV SCH ×3 (03:46→14:03)
[2018-02-03 03:50] LABS: ABSOLUTE BASOPHILS # (AUTO) 0.1 10^3/uL (0.0-0.2); ABSOLUTE EOSINOPHILS # (AUTO) 0.1 10^3/uL (0.0-0.6); ABSOLUTE LYMPHOCYTES (AUTO) 1.1 10^3/uL (0.5-4.7); ABSOLUTE MONOCYTES (AUTO) 1.1 10^3/uL (0.1-1.4); ABSOLUTE NEUT (AUTO) 8.1 10^3/uL (1.7-8.2); BASOPHILS % (AUTO) 0.6 % (0-2); EOSINOPHILS % (AUTO) 0.8 % (0-6); HEMATOCRIT 31.3 % (37.9-51.0); LYMPHOCYTES % (AUTO) 10.5 % (13-45); MEAN CORPUSCULAR VOLUME 91 fl (80-97); MONOCYTES % (AUTO) 10.5 % (3-13); PLATELET COUNT 169 10^3/uL (150-450); RED BLOOD COUNT 3.43 10^6/uL (4.35-5.55); RED CELL DISTRIBUTION WIDTH 14.7 % (11.5-14.0); SEGMENTED NEUTROPHILS % (AUTO) 77.6 % (42-78); TOTAL CELLS COUNTED % (AUTO) 100 %; WHITE BLOOD COUNT 10.4 10^3/uL (4.0-10.5)
[2018-02-03] MEDS ORDERED: ONDANSETRON HCL INJ/PF 4 MG/2 ML SDV IV PRN (04:15)
[2018-02-03] MEDS ORDERED: FENTANYL CITRATE INJ/PF 100 MCG/2 ML AMPUL IV PRN (04:16)
[2018-02-03] MEDS ORDERED: NORMAL SALINE 1000 ML 1,000 ML IV ONE (04:18)
[2018-02-03] MEDS ORDERED: HYDROCORTISONE SOD SUCCINATE INJ/PF 100 MG/2 ML SDV ONE (04:48)
[2018-02-03] MEDS ORDERED: HYDROCORTISONE SOD SUCCINATE INJ/PF 100 MG/2 ML SDV IV ONE (04:50)
[2018-02-03] MEDS ORDERED: KETOROLAC TROMETHAMINE INJ/PF 30 MG/1 ML SDV IV PRN (05:20)
--- NOTE | 2018-02-03 05:38 | PDOC H&P ---
History of Present Illness Admission Date/PCP: 02/03/18 03:23 JENNY VILLAGOMEZ MD Patient complains of: Altered mental status History of Present Illness: SHREYAS CONTRERAS is a 87 year old male with a past medical history prostate cancer with widespread bony metastasis, and intractable pain, Coronary artery disease and generalized debility. Patient presents with fatigue and weakness earlier in the day diagnosed with urinary tract infection discharge with oral antibiotics only to return after an episode of unresponsiveness. He is return to the emergency room by his and found to have hypotension and confusion. He started on IV fluids, antibiotics and referred to the hospitalist for admission. The patient's inquires about hospice given his rapid decline over the last 6 months. He denies chest pain, shortness of breath, nausea or vomiting. Past Medical History Cardiac Medical History: Reports: Coronary Artery Disease, Myocardial Infarction - NSTEMI Denies: Hypertension Pulmonary Medical History: Denies: Asthma, Bronchitis, Chronic Obstructive Pulmonary Disease (COPD), Pneumonia, Tuberculosis Endocrine Medical History: Reports: Hypothyroidism Musculoskeltal Medical History: Denies: Arthritis Hematology: Denies: Anemia Past Surgical History Past Surgical History: Reports: Appendectomy, Orthopedic Surgery - Ulna nerve reroute R arm Denies: Pacemaker Social History Information Source: Patient, Emergency Med Personnel, [facility] Records Lives with: Spouse/Significant other Smoking Status: Never Smoker Hx Recreational Drug Use: No Drugs: None Hx Prescription Drug Abuse: No - Advance Directive Resuscitation Status: Do Not Resuscitate Family History Family History: Hypertension Parental Family History Reviewed: No - Unobtainable Children Family History Reviewed: No Sibling(s) Family History Reviewed.: No Medication/Allergy Home Medications: Aspirin [Aspirin 81 mg Chewable Tablet] 81 mg PO DAILY 01/21/12 Cholestyramine (with Sugar) [Cholestyramine Packet] 4 gm PO ACHS 01/21/12 Cyanocobalamin (Vitamin B-12) [Vitamin B-12] 1 tab PO DAILY 01/21/12 Terazosin HCl [Hytrin] 5 mg PO QHS 01/21/12 Calcium Carbonate/Vitamin D3 [Calcium 600 + Vit D Tablet] 1 tab PO DAILY Cetirizine HCl [Zyrtec] 10 mg PO DAILY 12/13/14 Denosumab [Prolia 60 mg/ml Syr 1 ml] 80 units SUBCUT 12/13/14 Finasteride [Proscar 5 mg Tablet] 5 mg PO QPM 12/13/14 Levothyroxine Sodium 112 mcg PO DAILY 12/13/14 Cephalexin Monohydrate [Keflex 500 mg Capsule] 500 mg PO Q6H 7 Days capsule 11/12 Allergies/Adverse Reactions: adhesive [Adhesive] Allergy (Verified 01/21/12 01:07) alfuzosin HCl [From Uroxatral] Allergy (Verified 01/21/12 01:07) atorvastatin calcium [From Lipitor] Allergy (Verified 01/21/12 01:07) bacitracin [From Neosporin] Allergy (Verified 01/21/12 01:07) bacitracin zinc [From Neosporin] Allergy (Verified 01/21/12 01:07) gramicidin D [From Neosporin] Allergy (Verified 01/21/12 01:07) neomycin [Neomycin] Allergy (Verified 01/21/12 01:07) neomycin sulfate [From Neosporin] Allergy (Verified 01/21/12 01:07) nystatin [Nystatin] Allergy (Verified 01/21/12 01:07) polymyxin B [From Neosporin] Allergy (Verified 01/21/12 01:07) polymyxin B sulfate [From Neosporin] Allergy (Verified 01/21/12 01:07) simvastatin [From Zocor] Allergy (Verified 01/21/12 01:07) alfluzosin Allergy (Uncoded 01/21/12 01:07) polymycin Allergy (Uncoded 01/21/12 01:07) rubber gloves Allergy (Uncoded 01/21/12 01:07) Review of Systems ROS unobtainable: Due to mental status Physical Exam Vital Signs: Temp Pulse Resp BP Pulse Ox 97.5 F 17 110/56 L 94 02/03/18 01:56 02/03/18 05:01 02/03/18 05:01 02/03/18 05:01 Intake & Output 02/01/18 02/02/18 02/03/18 11:59 11:59 11:59 Intake Total 317 Balance 317 General appearance: PRESENT: other - Pale, chronically ill-appearing with temporal wasting. Head exam: PRESENT: atraumatic, normocephalic Eye exam: PRESENT: conjunctiva pink, EOMI, periorbital swelling, PERRLA. ABSENT : scleral icterus Ear exam: PRESENT: normal external ear exam Mouth exam: PRESENT: dry mucosa, tongue midline Neck exam: ABSENT: carotid bruit, JVD, lymphadenopathy, thyromegaly Respiratory exam: PRESENT: clear to auscultation scott. ABSENT: rales, rhonchi, wheezes Cardiovascular exam: PRESENT: RRR. ABSENT: diastolic murmur, rubs, systolic murmur Pulses: PRESENT: normal dorsalis pedis pul Vascular exam: PRESENT: normal capillary refill GI/Abdominal exam: PRESENT: normal bowel sounds, soft. ABSENT: distended, guarding, mass, organolmegaly, rebound, tenderness Rectal exam: PRESENT: deferred Extremities exam: PRESENT: full ROM, +1 edema. ABSENT: calf tenderness, clubbing, pedal edema Neurological exam: PRESENT: altered, oriented to person, CN II-XII grossly intact Psychiatric exam: PRESENT: appropriate affect, normal mood. ABSENT: homicidal ideation, suicidal ideation Skin exam: PRESENT: dry, intact, warm. ABSENT: cyanosis, rash Results Laboratory Results: 02/03/18 03:27 02/03/18 03:27 WBC 10.4 RBC 3.43 L Hgb 11.0 L D Hct 31.3 L MCV 91 MCH 32.0 MCHC 35.0 RDW 14.7 H Plt Count 169 Seg Neutrophils % 77.6 Lymphocytes % 10.5 L Monocytes % 10.5 Eosinophils % 0.8 Basophils % 0.6 Absolute Neutrophils 8.1 Absolute Lymphocytes 1.1 Absolute Monocytes 1.1 Absolute Eosinophils 0.1 Absolute Basophils 0.1 Assessment & Plan - Diagnosis (1) Catheter-associated urinary tract infection Qualifiers: Indwelling urinary catheter type: indwelling urethral catheter Encounter type: subsequent encounter Qualified Code(s): T83.511D - Infection and inflammatory reaction due to indwelling urethral catheter, subsequent encounter ; N39.0 - Urinary tract infection, site not specified; N39.0 - Urinary tract infection, site not specified Is this a current diagnosis for this admission?: Yes Plan: Empiric antibiotics, IV fluid challenge, follow-up CBC, blood and urine culture (2) Syncope Qualifiers: Syncope type: unspecified Qualified Code(s): R55 - Syncope and collapse Is this a current diagnosis for this admission?: Yes Plan: Likely secondary to #1, IV fluid challenge, complicated by steroid dependence, Solu-Medrol trial. (3) Leg pain Qualifiers: Laterality: right Qualified Code(s): M79.604 - Pain in right leg Is this a current diagnosis for this admission?: Yes Plan: Toradol and fentanyl as needed (4) Prostate cancer Is this a current diagnosis for this admission?: Yes Plan: Widespread bony metastasis with intractable pain, given patient's progressive decline he wishes for hospice consult. Oncology and discharge planning consulted. - Time Time Spent: 50 to 70 Minutes - Inpatient Certification Medical Necessity: Need Close Monitoring Due to Risk of Patient Decompensation
[2018-02-03] MEDS ORDERED: HEPARIN SOD (PORCINE) 5,000 UNIT/ML 1 ML SYRINGE SUBCUT SCH (06:00)
--- NOTE | 2018-02-03 06:56 | EKG REPORT ---
SEVERITY:- ABNORMAL ECG - SINUS RHYTHM RBBB AND LAFB : Confirmed by: Fercho Aly 03-Feb-2018 06:56:01
[2018-02-03 07:52] LABS: ABSOLUTE EOSINOPHILS # (AUTO) 0.1 10^3/uL (0.0-0.6); ABSOLUTE LYMPHOCYTES (AUTO) 0.7 10^3/uL (0.5-4.7); ABSOLUTE MONOCYTES (AUTO) 0.6 10^3/uL (0.1-1.4); ABSOLUTE NEUT (AUTO) 7.6 10^3/uL (1.7-8.2); BASOPHILS % (AUTO) 0.1 % (0-2); EOSINOPHILS % (AUTO) 0.8 % (0-6); HEMATOCRIT 29.6 % (37.9-51.0); HEMOGLOBIN 10.2 g/dL (13.5-17.0); LYMPHOCYTES % (AUTO) 7.6 % (13-45); MEAN CORPUSCULAR HEMOGLOBIN 32.1 pg (27.0-33.4); MEAN CORPUSCULAR HGB CONC 34.5 g/dL (32.0-36.0); MEAN CORPUSCULAR VOLUME 93 fl (80-97); PLATELET COUNT 178 10^3/uL (150-450); RED BLOOD COUNT 3.19 10^6/uL (4.35-5.55); RED CELL DISTRIBUTION WIDTH 14.5 % (11.5-14.0); SEGMENTED NEUTROPHILS % (AUTO) 84.5 % (42-78); TOTAL CELLS COUNTED % (AUTO) 100 %
[2018-02-03] MEDS ORDERED: ASPIRIN 81 MG TABLET, CHEWABLE PO SCH (10:00)
[2018-02-03] MEDS: PREDNISONE 20 MG TABLET PO SCH ×2 (10:26→18:22)
--- NOTE | 2018-02-03 11:52 | PDOC CONSULTATION ---
Consultation Consult Date: 02/03/18 Consult reason:: Hematology/Oncology consultation was requested for patient with metastatic prostate cancer. History of Present Illness Admission Date/PCP: 02/03/18 03:23 JENNY VILLAGOMEZ MD History of Present Illness: SHREYAS CONTRERAS is a 87 year old male who was diagnosed with Prostate cancer in 2014. He has most recently been followed by Dr. Chapman, Dr. Galindo, and Dr. Cline for his treatments. He has been taking Zytiga and Prednisone now for about 15 months, as well as Lupron shots. However, he states that ever since starting these medications, he has become weaker and weaker. His bone pain over the last few days is getting worse and he is no longer able to do most of the things he enjoys due to the weakness and fatigue. His appetite is good. He was having increased urinary frequency and was in the ED a few days ago. A mullins catheter was placed and he was started on antibiotics, but the catheter caused leakage and bleeding and had to be replaced again here in the ED. He and his state that they need more help at home and spoke with [facility], but they had recommended Hospice services instead. Past Medical History Cardiac Medical History: Reports: Coronary Artery Disease, Myocardial Infarction - NSTEMI Denies: Hypertension Pulmonary Medical History: Denies: Asthma, Bronchitis, Chronic Obstructive Pulmonary Disease (COPD), Pneumonia, Tuberculosis Endocrine Medical History: Reports: Hypothyroidism Malignancy Medical History: Reports: Other - Prostate Cancer with bone mets. Musculoskeltal Medical History: Denies: Arthritis Hematology: Denies: Anemia Past Surgical History Past Surgical History: Reports: Appendectomy, Orthopedic Surgery - Ulna nerve reroute R arm Denies: Pacemaker Social History Information Source: Patient Occupation: Retired Lives with: Spouse/Significant other Smoking Status: Never Smoker Hx Recreational Drug Use: No Drugs: None Hx Prescription Drug Abuse: No Past Social History Note: 3 children. - Advance Directive Resuscitation Status: Do Not Resuscitate Family History Family History: Hypertension Parental Family History Reviewed: Yes - Father of Lung Cancer Children Family History Reviewed: Yes - 1 Daughter of leukemia. Sibling(s) Family History Reviewed.: Yes - 2 brothers of lung cancer. Paternal aunt with panc Ca. Medication/Allergy Home Medications: Aspirin [Adult Aspirin Regimen] 81 mg PO DAILY 12/10/18 Cetirizine HCl [Zyrtec 10 mg Tablet] 10 mg PO DAILY 02/03/18 Cholecalciferol (Vitamin D3) [Vitamin D3 1000 Unit Tablet] 1,000 unit PO DAILY 02/03/18 Cholestyramine/Aspartame [Prevalite Packet] 4 gm PO DAILY 02/03/18 Cyanocobalamin (Vitamin B-12) [Vitamin B-12 1000 mcg Tablet] 1,000 mcg PO DAILY 02/03/18 Levothyroxine Sodium 125 mcg PO Q6AM 02/03/18 Tebs Eye Vitamin 1 tab PO DAILY 02/03/18 Tramadol HCl [Ultram 50 mg Tablet] 50 mg PO Q12HP PRN 02/03/18 Allergies/Adverse Reactions: adhesive [Adhesive] Allergy (Verified 01/21/12 01:07) alfuzosin HCl [From Uroxatral] Allergy (Verified 01/21/12 01:07) atorvastatin calcium [From Lipitor] Allergy (Verified 01/21/12 01:07) bacitracin [From Neosporin] Allergy (Verified 01/21/12 01:07) bacitracin zinc [From Neosporin] Allergy (Verified 01/21/12 01:07) gramicidin D [From Neosporin] Allergy (Verified 01/21/12 01:07) neomycin [Neomycin] Allergy (Verified 01/21/12 01:07) neomycin sulfate [From Neosporin] Allergy (Verified 01/21/12 01:07) nystatin [Nystatin] Allergy (Verified 01/21/12 01:07) polymyxin B [From Neosporin] Allergy (Verified 01/21/12 01:07) polymyxin B sulfate [From Neosporin] Allergy (Verified 01/21/12 01:07) simvastatin [From Zocor] Allergy (Verified 01/21/12 01:07) alfluzosin Allergy (Uncoded 01/21/12 01:07) polymycin Allergy (Uncoded 01/21/12 01:07) rubber gloves Allergy (Uncoded 01/21/12 01:07) Review of Systems Constitutional: PRESENT: weakness. ABSENT: fever(s), headache(s) Eyes: PRESENT: visual disturbances Ears: ABSENT: hearing changes Nose, Mouth, and Throat: ABSENT: sore throat Cardiovascular: ABSENT: chest pain Respiratory: ABSENT: dyspnea Gastrointestinal: ABSENT: constipation, nausea Genitourinary: PRESENT: hematuria Musculoskeletal: PRESENT: back pain, muscle weakness Integumentary: ABSENT: pruritus, rash Neurological: PRESENT: weakness Hematologic/Lymphatic: ABSENT: easy bruising Physical Exam Vital Signs: Temp Pulse Resp BP Pulse Ox 98.5 F 18 135/79 H 97 02/03/18 06:46 02/03/18 08:46 02/03/18 08:46 02/03/18 08:46 Intake & Output 02/02/18 02/03/18 02/04/18 06:59 06:59 06:59 Intake Total 1317 1366 Balance 1317 1366 General appearance: PRESENT: no acute distress, well-developed, well-nourished Exam: 87 year old male. Head exam: PRESENT: atraumatic, normocephalic Eye exam: PRESENT: EOMI, PERRLA Mouth exam: PRESENT: moist, tongue midline Neck exam: ABSENT: lymphadenopathy, tenderness Respiratory exam: PRESENT: clear to auscultation scott, unlabored Cardiovascular exam: PRESENT: RRR, systolic murmur - Holosystolic, machine murmur. GI/Abdominal exam: PRESENT: soft. ABSENT: organolmegaly, tenderness Gentrourinary exam: PRESENT: indwelling catheter Extremities exam: PRESENT: +1 edema Neurological exam: PRESENT: alert, awake, oriented to person, oriented to place , oriented to time, oriented to situation Psychiatric exam: PRESENT: appropriate affect Skin exam: PRESENT: other - Venous stasis changes to ankles L>R Results Laboratory Results: 02/03/18 06:00 02/03/18 02/03/18 03:27 06:00 WBC 10.4 9.0 RBC 3.43 L 3.19 L Hgb 11.0 L D 10.2 L Hct 31.3 L 29.6 L MCV 91 93 MCH 32.0 32.1 MCHC 35.0 34.5 RDW 14.7 H 14.5 H Plt Count 169 178 Seg Neutrophils % 77.6 84.5 H Lymphocytes % 10.5 L 7.6 L Monocytes % 10.5 7.0 Eosinophils % 0.8 0.8 Basophils % 0.6 0.1 Absolute Neutrophils 8.1 7.6 Absolute Lymphocytes 1.1 0.7 Absolute Monocytes 1.1 0.6 Absolute Eosinophils 0.1 0.1 Absolute Basophils 0.1 0.0 Status: Image reviewed by me Assessment & Plan - Diagnosis (1) Prostate cancer Is this a current diagnosis for this admission?: Yes Plan: with Bone Mets. I discussed with the patient that there are still many more treatment options for his cancer. However, this would require further testing with blood work and scans. Patient declines. He wants to stop the Zytiga and get off the prednisone HOWARD. He states that he is a DNR and wishes no artificial life support. (2) Urinary retention Is this a current diagnosis for this admission?: Yes Plan: with UTI and indwelling Mullins currently in place. I would continue antibiotics for the UTI. (3) Pain due to malignant neoplasm metastatic to bone Is this a current diagnosis for this admission?: Yes Plan: He is on Tramadol and PRN IV fentanyl at present. He denies having tried narcotic pain meds before. I will add a low-dose PRN Morphine tablet to see how he does with this, as needed. Titrate pain meds as needed. - Plan Summary Plan Summary: I discussed at length with patient and . They both request Hospice Services. They no longer wish to follow with any of his other providers and understand that no further aggressive measures will be performed while on Hospice, but he may elect in the future, if he is doing much better, to stop Hospice and consider further treatment. I will arrange an educational visit, and to have Hospice services start on discharge. I will manage pain medications and will slowly wean his Prednisone. This plan was discussed with his ED physician as well.
[2018-02-03 16:24] LABS: FREE T3 2.35 pg/mL (2.77-5.27)
[2018-02-03 16:27] LABS: FREE T4 (FREE THYROXINE) 1.89 ng/dL (0.78-2.19)
--- NOTE | 2018-02-03 17:24 | PDOC PROGRESS REPORT ---
Subjective Progress Note for:: 02/03/18 Subjective:: The patient is an 87-year-old male with a past medical history of prostate cancer with widespread bony metastasis and intractable pain, coronary artery disease, and general debility who was admitted 02/03/2018 for catheter associated UTI and syncope. He is seen on morning rounds with his present. He is resting in bed comfortably on room air. He reports that his pain is well controlled at present. The patient might have many questions with regard to available hospice services. They would like to discharged home with hospice assistance, but are concerned about his continued weakness and the fact that they have a very limited support system (the patient's [id number] is an elderly frail woman as well). They both recognize that they will likely need inpatient hospice services in the future would like to establish with the hospice service that could provide the transitional care. Primary goal is management of pain and rehydration so that the patient will be stable for discharge home. The patient's also asks that we continue treating his urinary tract infection, recognizing that resolution of the infection may improve his overall sense of well-being. Patient denies fever, chills, chest pain, palpitations, dyspnea, abdominal pain , nausea vomiting and diarrhea. No concerns per nursing. Reason For Visit: SNCOPE,PYELONEPHRITIS, STAGE 4 PROSTATE CA Physical Exam Vital Signs: Temp Pulse Resp BP Pulse Ox 98.5 F 67 20 147/70 H 100 02/03/18 15:33 02/03/18 15:33 02/03/18 15:33 02/03/18 15:33 02/03/18 15:33 Intake & Output 02/02/18 02/03/18 02/04/18 06:59 06:59 06:59 Intake Total 1317 2366 Output Total 700 Balance 1317 1666 Weight 84.4 kg General appearance: PRESENT: no acute distress, cooperative - Very pleasant, well-developed, well-nourished Head exam: PRESENT: atraumatic, normocephalic Eye exam: PRESENT: conjunctiva pink, EOMI, PERRLA. ABSENT: scleral icterus Ear exam: PRESENT: normal external ear exam Mouth exam: PRESENT: moist, tongue midline Neck exam: ABSENT: carotid bruit, JVD, lymphadenopathy, thyromegaly Respiratory exam: PRESENT: clear to auscultation scott, symmetrical, unlabored. ABSENT: rales, rhonchi, wheezes Cardiovascular exam: PRESENT: RRR, +S1, +S2, systolic murmur. ABSENT: diastolic murmur, rubs Pulses: PRESENT: normal dorsalis pedis pul Vascular exam: PRESENT: normal capillary refill GI/Abdominal exam: PRESENT: normal bowel sounds, soft. ABSENT: distended, guarding, mass, organolmegaly, rebound, tenderness Rectal exam: PRESENT: deferred Gentrourinary exam: PRESENT: indwelling catheter Extremities exam: PRESENT: full ROM. ABSENT: calf tenderness, clubbing, pedal edema Neurological exam: PRESENT: alert, awake, oriented to person, oriented to place , oriented to time, oriented to situation, CN II-XII grossly intact. ABSENT: motor sensory deficit Psychiatric exam: PRESENT: appropriate affect, normal mood. ABSENT: homicidal ideation, suicidal ideation Skin exam: PRESENT: dry, intact, pallor, warm. ABSENT: cyanosis, rash Results Laboratory Results: 02/03/18 06:00 02/03/18 02/03/18 03:27 06:00 WBC 10.4 9.0 RBC 3.43 L 3.19 L Hgb 11.0 L D 10.2 L Hct 31.3 L 29.6 L MCV 91 93 MCH 32.0 32.1 MCHC 35.0 34.5 RDW 14.7 H 14.5 H Plt Count 169 178 Seg Neutrophils % 77.6 84.5 H Lymphocytes % 10.5 L 7.6 L Monocytes % 10.5 7.0 Eosinophils % 0.8 0.8 Basophils % 0.6 0.1 Absolute Neutrophils 8.1 7.6 Absolute Lymphocytes 1.1 0.7 Absolute Monocytes 1.1 0.6 Absolute Eosinophils 0.1 0.1 Absolute Basophils 0.1 0.0 Assessment & Plan - Diagnosis (1) Catheter-associated urinary tract infection Qualifiers: Indwelling urinary catheter type: indwelling urethral catheter Encounter type: subsequent encounter Qualified Code(s): T83.511D - Infection and inflammatory reaction due to indwelling urethral catheter, subsequent encounter ; N39.0 - Urinary tract infection, site not specified; N39.0 - Urinary tract infection, site not specified Is this a current diagnosis for this admission?: Yes Plan: The patient had recently be seen in the emergency department with Pena catheter exchange. He was discharged home on p.o. antibiotics but while in the car became syncopal. Blood are pending. Urine cultures are growing gram-negative rods. The patient is admitted to the medical floor. He has been provided generous IV fluids with improvement in his blood pressures. He has good p.o. intake; so therefore will hold on continued maintenance IV fluids as the patient and have expressed interest in transitioning to hospice care services. We will continue empiric IV Rocephin; will adjust antibiotics as cultures result. (2) Syncope Qualifiers: Syncope type: unspecified Qualified Code(s): R55 - Syncope and collapse Is this a current diagnosis for this admission?: Yes Plan: Secondary to #1. Complicated by generalized debility in the setting of prostate cancer with bony metastasis and steroid dependence. Blood pressures have improved with IV fluid resuscitation. Fall precautions. PT evaluation for safety and transfer recommendations; the patient is hoping to be discharged to home into the care of his elderly spouse with hospice services but, otherwise minimal social support (3) Leg pain Qualifiers: Laterality: right Qualified Code(s): M79.604 - Pain in right leg Is this a current diagnosis for this admission?: Yes Plan: Questionable bony metastasis versus strain during the near syncopal event at home one day prior. Patient states that he was in the bathroom ambulating with his walker when his legs suddenly gave out on him; he denies fall or specific injury but has had persistent right thigh pain since that time. The patient is ambulatory; consider knee and hip imaging if pain begins to limit his mobility. As needed tylenol, IV toradol, p.o. morphin IR, and IV fentanyl. PT evaluation. (4) Prostate cancer Is this a current diagnosis for this admission?: Yes Plan: The patient has prostate cancer with widespread bony metastasis. Both the patient and the reiterated to me that the wish to stop all treatments and pursue hospice services. Goal is for the patient to return to home with home hospice; both recognize that he likely will require transition to inpatient hospice services in the future. They do admit to having limited social support (an elderly sister lives nearby but otherwise no family or friends are available to provide in-home care assistance). Oncology is consulted. Discharge planning is consulted. - Time Time Spent with patient: 35 or more minutes Medications reviewed and adjusted accordingly: Yes Anticipated discharge: Hospice - home vs inpatient Within: within 48 hours
[2018-02-03] MEDS: CEFTRIAXONE 1 GM/D5W RTU 1 GM/50 ML RTUPB IV SCH ×2 (22:59→23:05)
[2018-02-04] MEDS ORDERED: FENTANYL CITRATE INJ/PF 100 MCG/2 ML AMPUL ONE (04:36)
[2018-02-04] MEDS ORDERED: FENTANYL CITRATE INJ/PF 100 MCG/2 ML AMPUL IV PRN (04:36)
[2018-02-04] MEDS ORDERED: KETOROLAC TROMETHAMINE INJ/PF 30 MG/1 ML SDV ONE (04:36)
[2018-02-04] MEDS ORDERED: FENTANYL CITRATE INJ/PF 100 MCG/2 ML AMPUL IV ONE (04:45)
[2018-02-04] MEDS ORDERED: KETOROLAC TROMETHAMINE INJ/PF 30 MG/1 ML SDV IV ONE (04:45)
[2018-02-04] MEDS ORDERED: (PENDING PHARMACY ID) (Levothyroxine Sodium [Levothyroxine Sodium] 125 MCG) PO SCH (06:00)
[2018-02-04] MEDS ORDERED: LEVOTHYROXINE SODIUM 0.025 MG TABLET PO SCH (06:00)
[2018-02-04] MEDS ORDERED: LEVOTHYROXINE SODIUM 0.1 MG TABLET PO SCH (06:00)
[2018-02-04 06:57] LABS: ABSOLUTE LYMPHOCYTES (AUTO) 0.5 10^3/uL (0.5-4.7); ABSOLUTE MONOCYTES (AUTO) 0.6 10^3/uL (0.1-1.4); ABSOLUTE NEUT (AUTO) 7.7 10^3/uL (1.7-8.2); HEMATOCRIT 27.8 % (37.9-51.0); HEMOGLOBIN 9.9 g/dL (13.5-17.0); LYMPHOCYTES % (AUTO) 6.1 % (13-45); MEAN CORPUSCULAR HEMOGLOBIN 32.3 pg (27.0-33.4); MEAN CORPUSCULAR HGB CONC 35.5 g/dL (32.0-36.0); MEAN CORPUSCULAR VOLUME 91 fl (80-97); MONOCYTES % (AUTO) 6.7 % (3-13); PLATELET COUNT 158 10^3/uL (150-450); RED BLOOD COUNT 3.05 10^6/uL (4.35-5.55); RED CELL DISTRIBUTION WIDTH 14.3 % (11.5-14.0); SEGMENTED NEUTROPHILS % (AUTO) 87.2 % (42-78); TOTAL CELLS COUNTED % (AUTO) 100 %; WHITE BLOOD COUNT 8.8 10^3/uL (4.0-10.5)
--- NOTE | 2018-02-04 08:18 | PDOC PROGRESS REPORT ---
Subjective Progress Note for:: 02/04/18 Subjective:: Patient states he had a terrible night last night. He had pain and was very restless. This morning, he is feeling much better. But, he is sleepy. He is anxious to go home. Reason For Visit: SNCOPE,PYELONEPHRITIS, STAGE 4 PROSTATE CA Physical Exam Vital Signs: Temp Pulse Resp BP Pulse Ox 98.7 F 63 17 114/59 L 97 02/04/18 03:00 02/04/18 07:00 02/04/18 03:00 02/04/18 03:00 02/04/18 03:00 Intake & Output 02/03/18 02/04/18 02/05/18 06:59 06:59 06:59 Intake Total 1317 3682 Output Total 1200 Balance 1317 2482 Weight 85.4 kg 85.4 kg General appearance: PRESENT: no acute distress, well-developed, well-nourished Head exam: PRESENT: normocephalic Respiratory exam: PRESENT: clear to auscultation scott, unlabored Cardiovascular exam: PRESENT: RRR, systolic murmur GI/Abdominal exam: PRESENT: soft. ABSENT: tenderness Extremities exam: PRESENT: +2 edema - Bilateral ankles. Skin exam: PRESENT: other - Flushed face. Results Laboratory Results: 02/04/18 06:23 02/04/18 06:23 WBC 8.8 RBC 3.05 L Hgb 9.9 L Hct 27.8 L MCV 91 MCH 32.3 MCHC 35.5 RDW 14.3 H Plt Count 158 Seg Neutrophils % 87.2 H Lymphocytes % 6.1 L Monocytes % 6.7 Eosinophils % 0.0 Basophils % 0.0 Absolute Neutrophils 7.7 Absolute Lymphocytes 0.5 Absolute Monocytes 0.6 Absolute Eosinophils 0.0 Absolute Basophils 0.0 Assessment & Plan - Diagnosis (1) Prostate cancer Is this a current diagnosis for this admission?: Yes Plan: with metastases to the bones. Patient has elected Hospice services and requests no further aggressive treatment. (2) Urinary retention Is this a current diagnosis for this admission?: Yes Plan: Pena to be left in place. Patient current very comfortable with this. He continues antibiotics for UTI. I will check Urine culture and will change to PO Keflex on discharge. Adjust antibiotics, based on culture results. (3) Pain due to malignant neoplasm metastatic to bone Is this a current diagnosis for this admission?: Yes Plan: Continue PO Morphine PRN for pain and increase dose as indicated. Consider long -acting pain medications, as indicated. He has symptoms of hypercalcemia, but Ca was normal on admission. Will monitor. - Plan Summary Plan Summary: I have discussed home hospice vs. inpatient nursing facility. Patient requests home hospice. Any and all Hospice are able to admit patients to inpatient hospice if indicated. I have coordinated with [facility] and they are aware of plans for discharge today. They will order Hospital bed and arrange for delivery. They will also assist with any other items at home. I will continue to follow him at home.
[2018-02-04] MEDS ORDERED: POLYETHYLENE GLYCOL 3350 POWDER 17 GM/1 PACKET PO SCH (10:00)
[2018-02-04] MEDS ORDERED: ASPIRIN 81 MG TABLET, ENT COATED PO SCH (10:00)
[2018-02-04] MEDS ORDERED: CETIRIZINE 10 MG TABLET PO SCH (10:00)
[2018-02-04] MEDS ORDERED: PREDNISONE 20 MG TABLET PO SCH (10:00)
[2018-02-04] MEDS: CEPHALEXIN 500 MG CAPSULE PO SCH ×2 (10:39→21:19)
[2018-02-04] MEDS: MORPHINE SULFATE IR 15 MG TABLET PO PRN ×2 (10:39→21:19)
[2018-02-04] MEDS: LIDOCAINE 5% (700 MG) TRANSDERMAL ADH..PATCH TP SCH (12:27)
[2018-02-04] MEDS ORDERED: SCOPOLAMINE HYDROBROMIDE 1.5 MG PATCH.TD72 TD ONE (13:00)
[2018-02-04] MEDS ORDERED: AMOXICILLIN TR/POT CLAVULANATE 500-125 MG TAB PO SCH (14:00)
--- NOTE | 2018-02-04 18:51 | PDOC DISCHARGE SUMMARY ---
General - Admit/Disc Date/PCP Admission Date/Primary Care Provider: 02/03/18 03:23 JENNY VILLAGOMEZ MD Discharge Date: 02/05/18 - Discharge Diagnosis (1) Catheter-associated urinary tract infection Is this a current diagnosis for this admission?: Yes (2) Syncope Is this a current diagnosis for this admission?: Yes (3) Leg pain Is this a current diagnosis for this admission?: Yes (4) Prostate cancer Is this a current diagnosis for this admission?: Yes - Additional Information Resuscitation Status: Do Not Resuscitate Home Medications: Aspirin [Adult Aspirin Regimen] 81 mg PO DAILY 02/03/18 Cetirizine HCl [Zyrtec 10 mg Tablet] 10 mg PO DAILY 02/03/18 Cholecalciferol (Vitamin D3) [Vitamin D3 1000 Unit Tablet] 1,000 unit PO DAILY 02/03/18 Cholestyramine/Aspartame [Prevalite Packet] 4 gm PO DAILY 02/03/18 Cyanocobalamin (Vitamin B-12) [Vitamin B-12 1000 mcg Tablet] 1,000 mcg PO DAILY 02/03/18 Levothyroxine Sodium 125 mcg PO Q6AM 02/03/18 Tebs Eye Vitamin 1 tab PO DAILY 02/03/18 Tramadol HCl [Ultram 50 mg Tablet] 50 mg PO Q12HP PRN 02/03/18 History of Present Illness History of Present Illness: Per H&P by Dr. Sun: SHREYAS CONTRERAS is a 87 year old male with a past medical history prostate cancer with widespread bony metastasis, and intractable pain, Coronary artery disease and generalized debility. Patient presents with fatigue and weakness earlier in the day diagnosed with urinary tract infection discharge with oral antibiotics only to return after an episode of unresponsiveness. He is return to the emergency room by his and found to have hypotension and confusion. He started on IV fluids, antibiotics and referred to the hospitalist for admission. The patient's inquires about hospice given his rapid decline over the last 6 months. He denies chest pain, shortness of breath, nausea or vomiting. Hospital Course Hospital Course: The patient was admitted with intractable pain, nausea vomiting, and a catheter associated urinary tract infection following a syncopal event while in a sitting position. Pena catheter has been changed. Blood cultures are negative at 24 hours, urine culture grew pansensitive Proteus Mirabilis. He was initially placed on IV Rocephin and has been transitioned to p.o. Keflex for completion of the 5- day course of therapy. He was provided generous IV fluid support with resolution of his hypotension. He continues to have good p.o. intake despite complaints of persistent nausea; no episodes of emesis. Nausea somewhat improved with addition of scopolamine patch today. The patient continues to report severe pain unrelieved by rest; especially to his bilateral lower legs describing an aching sensation that improves with movement. He is agreeable to trial of Requip for restless legs. His pain medication regiment has been adjusted to include as needed p.o. Tylenol, IV Toradol, p.o. morphine IR, and IV fentanyl. Unfortunately due to him being opiate mark, even small doses of opiate medications result in dizziness, and generalized weakness that limits his mobility and ability to care for himself. He does report improved pain control, however, remains clearly in discomfort. Originally, the patient and family desired the patient to be discharged home with home hospice services. However after physical therapy evaluations and witnessing the generalized weakness the patient experiences when receiving increased opiate medications; it was determined that they did not have the resources to care for him in the home. 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 At time of this dictation, the patient is in fair, but stable, condition. Transportation arrangements have been made for the patient to proceed to [facility] center early tomorrow morning. Physical Exam Vital Signs: Temp Pulse Resp BP Pulse Ox 98.2 F 65 18 154/68 H 100 02/04/18 16:20 02/04/18 16:20 02/04/18 16:20 02/04/18 16:20 02/04/18 16:20 Intake & Output 02/03/18 02/04/18 02/05/18 06:59 06:59 06:59 Intake Total 1317 3682 553 Output Total 1200 675 Balance 1317 2482 -122 Weight 85.4 kg 85.4 kg General appearance: PRESENT: cooperative - Pleasant, well-developed, well- nourished, other - Chronically ill-appearing Head exam: PRESENT: atraumatic, normocephalic Eye exam: PRESENT: conjunctiva pink, EOMI, PERRLA. ABSENT: scleral icterus Ear exam: PRESENT: normal external ear exam Mouth exam: PRESENT: moist, tongue midline Neck exam: ABSENT: carotid bruit, JVD, lymphadenopathy, thyromegaly Respiratory exam: PRESENT: clear to auscultation scott, symmetrical, unlabored. ABSENT: rales, rhonchi, wheezes Cardiovascular exam: PRESENT: RRR. ABSENT: diastolic murmur, rubs, systolic murmur Pulses: PRESENT: normal dorsalis pedis pul Vascular exam: PRESENT: normal capillary refill GI/Abdominal exam: PRESENT: normal bowel sounds, soft. ABSENT: distended, guarding, mass, organolmegaly, rebound, tenderness Rectal exam: PRESENT: deferred Gentrourinary exam: PRESENT: indwelling catheter Extremities exam: PRESENT: full ROM. ABSENT: calf tenderness, clubbing, pedal edema Neurological exam: PRESENT: alert, awake, oriented to person, oriented to place , oriented to time, oriented to situation, CN II-XII grossly intact. ABSENT: motor sensory deficit Psychiatric exam: PRESENT: appropriate affect, normal mood. ABSENT: homicidal ideation, suicidal ideation Skin exam: PRESENT: dry, intact, warm. ABSENT: cyanosis, rash Results Laboratory Results: 02/04/18 06:23 02/04/18 06:23 WBC 8.8 RBC 3.05 L Hgb 9.9 L Hct 27.8 L MCV 91 MCH 32.3 MCHC 35.5 RDW 14.3 H Plt Count 158 Seg Neutrophils % 87.2 H Lymphocytes % 6.1 L Monocytes % 6.7 Eosinophils % 0.0 Basophils % 0.0 Absolute Neutrophils 7.7 Absolute Lymphocytes 0.5 Absolute Monocytes 0.6 Absolute Eosinophils 0.0 Absolute Basophils 0.0 Qualifiers - * PATIENT BEING DISCHARGED WITH ANY OF THE FOLLOWING DIAGNOSIS: No Plan Discharge Plan: Transfer to [facility]. Time Spent: Greater than 30 Minutes
[2018-02-04] MEDS ORDERED: ROPINIROLE HCL 0.25 MG TABLET PO SCH (22:00)
[2018-02-04] MEDS ORDERED: CEFTRIAXONE SODIUM 1,000 MG in DEXTROSE 5%-WATER 50 ML IV SCH (22:00)
[2018-02-05 04:12] VITALS: BP 142/73
[2018-02-05] MEDS ORDERED: LEVOTHYROXINE SODIUM 0.15 MG TABLET PO SCH (06:00)
[2018-02-05] MEDS: MORPHINE SULFATE IR 15 MG TABLET PO PRN (06:12)
--- NOTE | 2018-02-05 08:11 | PDOC PROGRESS REPORT ---
Subjective Progress Note for:: 02/05/18 Subjective:: Patient states that he slept very well last night. His pain has been well controlled. No new complaints overnight. He is appreciative of everything we have done and agrees with plan for transfer to inpatient hospice in [place]. Reason For Visit: SNCOPE,PYELONEPHRITIS, STAGE 4 PROSTATE CA Physical Exam Vital Signs: Temp Pulse Resp BP Pulse Ox 98.3 F 73 18 142/73 H 98 02/05/18 00:00 02/05/18 00:00 02/05/18 00:00 02/05/18 00:00 02/05/18 00:00 Intake & Output 02/04/18 02/05/18 02/06/18 06:59 06:59 06:59 Intake Total 3682 1135 Output Total 1200 1400 Balance 2482 -265 Weight 85.4 kg General appearance: PRESENT: well-developed, well-nourished Head exam: PRESENT: normocephalic Respiratory exam: PRESENT: unlabored Cardiovascular exam: PRESENT: RRR, systolic murmur GI/Abdominal exam: PRESENT: normal bowel sounds, soft. ABSENT: tenderness Extremities exam: PRESENT: +2 edema Skin exam: PRESENT: normal color, other - Flushed cheeks. Results Laboratory Results: 02/04/18 06:23 Assessment & Plan - Diagnosis (1) Prostate cancer Is this a current diagnosis for this admission?: Yes (2) Urinary retention Is this a current diagnosis for this admission?: Yes (3) Pain due to malignant neoplasm metastatic to bone Is this a current diagnosis for this admission?: Yes - Plan Summary Plan Summary: Agree with plans for in-patient Hospice. His does not believe she will be able to care for him at home. Patient understands that he may decline quickly. However, now that many of his medications have been stopped, he may also improve for a while. He would like to become strong enough to go home at some point, but understands that this may not be possible. Will continue to wean off steroids. 20 mg daily x 7 days, then 10 mg daily x 7 days, then 5 mg daily x 7 days, then STOP. Continue PRN pain medications and add long-acting as indicated. Please call me with any concerns. I will be happy to remain his attending physician while on Hospice, if not inpatient.
[2018-02-05] MEDS: LIDOCAINE 5% (700 MG) TRANSDERMAL ADH..PATCH TP SCH (09:35)
== END 2018-02-05 09:30 | disposition hospice, inpatient (51) | DRG 949 ==
LOC: ER 01:16 → EH 03:23 → OBSVTOIN 03:23 → 4N 14:45
PROVIDERS: ADMIT Internal Medicine; ATTEND Internal Medicine
DX: T83.511D Infection and inflammatory reaction due to indwelling urethral catheter, subsequent encounter (principal); N39.0 Urinary tract infection, site not specified; C79.51 Secondary malignant neoplasm of bone; C79.82 Secondary malignant neoplasm of genital organs; Z66 Do not resuscitate; C61 Malignant neoplasm of prostate; I25.10 Atherosclerotic heart disease of native coronary artery without angina pectoris; I10 Essential (primary) hypertension; E03.9 Hypothyroidism, unspecified; R33.9 Retention of urine, unspecified; G89.3 Neoplasm related pain (acute) (chronic); M79.604 Pain in right leg; R41.82 Altered mental status, unspecified; I25.2 Old myocardial infarction; Z86.73 Personal history of transient ischemic attack (TIA), and cerebral infarction without residual deficits; Z79.82 Long term (current) use of aspirin
CPT/HCPCS: 36415; 71045; 80048; 80053; 81001; 82962; 83605; 83735; 84439; 84443; 84481; 84484; 85025; 87040; 87086; 87088; 87186; 93005; 93010; 96361; 96365; 96375; 99285; G8978-GP; G8979-GP; J0696; J1720; J1885; J2405; J3010; J3490; J7030; J7120; J7512